=== PATIENT | male | born 1980 | race Caucasian/White ===

== ENCOUNTER 2018-10-03 14:22 | Observation (INO) | payer SELFPAY ==
[~2018-10-03] VITALS: Ht 170.2 cm; Wt 115.7 kg
[~2018-10-03 14:22] MED LIST: HYDR1TAB PO; IBP800T PO; METH4TAB PO
[2018-10-03 14:42] LABS: HEMATOCRIT 46 % (40-54); HEMOGLOBIN 16.1 G/DL (13.3-17.7); MEAN CORPUSCULAR HEMOGLOBIN 30 PG (25-34); MEAN CORPUSCULAR HGB CONC 35 G/DL (32-36); MEAN CORPUSCULAR VOLUME 87 FL (80-99)
[2018-10-03 14:43] LABS: BASOPHILS % (AUTO) 1 % (0-10); EOSINOPHILS # (AUTO) 0.2 10^3/uL (0.0-0.3); EOSINOPHILS % (AUTO) 4 % (0-10); LYMPHOCYTES % (AUTO) 33 % (12-44); MEAN PLATELET VOLUME 10.5 FL (7.4-10.4); MONOCYTES # (AUTO) 0.5 X 10^3 (0.0-1.0); MONOCYTES % (AUTO) 8 % (0-12); NEUTROPHILS # (AUTO) 3.3 X 10^3 (1.8-7.8); NEUTROPHILS % (AUTO) 55 % (42-75); PLATELET COUNT 145 10^3/uL (130-400); RED CELL DISTRIBUTION WIDTH 13.3 % (10.0-14.5)
[2018-10-03] MEDS ORDERED: NITROGLYCERIN 0.4 MG SL TABS BTL 25'S SL PRN (14:45)
[2018-10-03] MEDS ORDERED: ONDANSETRON 4 MG/2 ML (SDV) Z0FRAN IVP ONE (14:45)
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
--- NOTE | 2018-10-03 15:01 | Diagnostic Imaging Report ---
INDICATION: Chest pain. Portable chest at 02:24 p.m. FINDINGS: There are postop changes from a median sternotomy. Heart size and pulmonary vascularity are normal. Lungs are clear. There are no effusions or pneumothoraces. IMPRESSION: Negative chest. Dictated by: Dictated on workstation # [id number]
[2018-10-03 15:13] LABS: CARBON DIOXIDE 26 MMOL/L (21-32); CHLORIDE 97 MMOL/L (98-107); SODIUM 136 MMOL/L (135-145)
[2018-10-03 15:14] LABS: ALANINE AMINOTRANSFERASE 59 U/L (0-55); ALKALINE PHOSPHATASE 96 U/L (40-136); BILIRUBIN,TOTAL 0.6 MG/DL (0.1-1.0); BUN/CREATININE RATIO 13; CALCIUM 8.9 MG/DL (8.5-10.1); CREATININE SERUM 0.88 MG/DL (0.60-1.30); GFR ESTIMATED > 60; GLUCOSE 124 MG/DL (70-105); MAGNESIUM 1.7 MG/DL (1.8-2.4); TOTAL PROTEIN 7.4 GM/DL (6.4-8.2)
[2018-10-03 15:15] LABS: ALBUMIN 4.7 GM/DL (3.2-4.5); LIPASE 107 U/L (8-78)
--- OUTSIDE RECORDS SUMMARY | 2018-10-03 17:18 | XMS REPORT ---
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 Active 684679302 Problem Left hand paresthesia R20.2 Active [id number] ALLERGIES No Information ENCOUNTERS Encounter Location Date Diagnosis [address] [address] August, Tension headache G44.209 and Hyperlipidemia E78.[address] [address] August, Left hand paresthesia R20.[address] [address] August, Left hand paresthesia R20.[address] [address] August, Left hand paresthesia R20.2 ; 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 and Acanthosis nigricans L83 [address] [address] August, Left hand paresthesia R20.2 ; Morbid obesity E66.01 ; 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 and Acanthosis nigricans L83 [address] [address] Jun, Acute chest wall pain R07.89 and Morbid obesity E66.01 [facility] [address] [facility] [id number] [address] Jul, [place] [id number] [facility] [id number] [address] Jul, [facility] [address] [facility] [id number] [address] Sep, [facility] [address] [facility] [id number] [place] [address] August, [facility] [address] [facility] [id number] [address] Jul, [facility] [address] [facility] [id number] [address] Apr, [facility] [address] [facility] [id number] [address] Apr, [facility] [id number] [address] Apr, [facility] [address] [address] Feb, [facility] [address] [address] Feb, [facility] [address] [place] [id number] [address] Feb, [facility] [address] [place] [id number] [address] Feb, IMMUNIZATIONS No Known Immunizations SOCIAL HISTORY Never Assessed REASON FOR VISIT [facility] PLAN OF CARE VITAL SIGNS MEDICATIONS No Known Medications RESULTS No Results PROCEDURES No Known procedures INSTRUCTIONS MEDICATIONS ADMINISTERED No Known Medications MEDICAL (GENERAL) HISTORY Type Description Date Medical History hypertension Medical History heart by pass Medical History two stents Surgical History heart surgery Surgical History stent placement Hospitalization History surgery
--- OUTSIDE RECORDS SUMMARY | 2018-10-03 17:18 | XMS REPORT | Continuity of Care Document ---
Author Organization Unknown Address Unknown Allergies There is no data. Medications There is no data. Problems There is no data. Procedures There is no data. Results Test Result Range [facility] - 09/05/18 07:50 GLUCOSE 89 mg/dL 65-99 UREA NITROGEN (BUN) 14 mg/dL 7-25 CREATININE 0.86 mg/dL 0.60-1.35 eGFR NON-AFR. IRISH 109 mL/min/1.73m2 > OR=60 eGFR 127 mL/min/1.73m2 > OR=60 BUN/CREATININE RATIO NOT APPLICABLE (calc) 6-22 SODIUM 137 mmol/L 135-146 POTASSIUM 4.3 mmol/L 3.5-5.3 CHLORIDE 103 mmol/L 98-110 CARBON DIOXIDE 27 mmol/L 20-32 CALCIUM 9.2 mg/dL 8.6-10.3 PROTEIN, TOTAL 7.1 g/dL 6.1-8.1 ALBUMIN 4.6 g/dL 3.6-5.1 GLOBULIN 2.5 g/dL (calc) 1.9-3.7 ALBUMIN/GLOBULIN RATIO 1.8 (calc) 1.0-2.5 BILIRUBIN, TOTAL 0.7 mg/dL 0.2-1.2 ALKALINE PHOSPHATASE 84 U/L 40-115 AST 34 U/L 10-40 ALT 51 U/L 9-46 CBC - 09/05/18 07:50 WHITE BLOOD CELL COUNT 4.8 Thousand/uL 3.8-10.8 RED BLOOD CELL COUNT 5.62 Million/uL 4.20-5.80 HEMOGLOBIN 16.8 g/dL 13.2-17.1 HEMATOCRIT 48.6 % 38.5-50.0 MCV 86.5 fL 80.0-100.0 MCH 29.9 pg 27.0-33.0 MCHC 34.6 g/dL 32.0-36.0 RDW 12.9 % 11.0-15.0 PLATELET COUNT 146 Thousand/uL 140-400 MPV 11.2 fL 7.5-12.5 ABSOLUTE NEUTROPHILS 2866 cells/uL 3755-6609 ABSOLUTE LYMPHOCYTES 1392 cells/uL 850-3900 ABSOLUTE MONOCYTES 326 cells/uL 200-950 ABSOLUTE EOSINOPHILS 187 cells/uL 15-500 ABSOLUTE BASOPHILS 29 cells/uL 0-200 NEUTROPHILS 59.7 % NRG LYMPHOCYTES 29.0 % NRG MONOCYTES 6.8 % NRG EOSINOPHILS 3.9 % NRG BASOPHILS 0.6 % NRG ESR/SED RATE - 09/05/18 07:50 SED RATE BY MODIFIED WESTERGREN 2 mm/h < OR=15 A1C - 09/05/18 07:50 HEMOGLOBIN A1c 5.9 % of total Hgb <5.7 Encounters ACCT No. Visit Date/Time Discharge Status Pt. Type Provider Facility Loc./Unit Complaint [id number] 09/11/2018 10:00:00 09/11/2018 23:59:59 CLS Outpatient JOE ROTHMANK [place] [id number] 09/05/2018 08:00:00 Document Registration
--- OUTSIDE RECORDS SUMMARY | 2018-10-03 17:27 | XMS REPORT | Continuity of Care Document ---
Author Organization Unknown Address Unknown Allergies There is no data. Medications There is no data. Problems There is no data. Procedures There is no data. Results Test Result Range [facility] - 09/05/18 07:50 GLUCOSE 89 mg/dL 65-99 UREA NITROGEN (BUN) 14 mg/dL 7-25 CREATININE 0.86 mg/dL 0.60-1.35 eGFR NON-AFR. [place] 109 mL/min/1.73m2 > OR=60 eGFR 127 mL/min/1.73m2 [...] 11.2 fL 7.5-12.5 ABSOLUTE NEUTROPHILS 2866 cells/uL 0609-5443 ABSOLUTE LYMPHOCYTES 1392 cells/uL 850-3900 ABSOLUTE MONOCYTES [...] Status Pt. Type Provider Facility Loc./Unit Complaint [id number] 09/11/2018 10:00:00 09/11/2018 23:59:59 CLS Outpatient JOE ROTHMANK [place] [id number] 09/05/2018 08:00:00 Document Registration
--- NOTE | 2018-10-03 17:45 | NUR ---
JACKIShira HURTADO admitted to room 416-1, with an admitting diagnosis of CHEST PAIN, on 10/03/18 from [facility] via [facility], accompanied by [employer] AND STAFF.JACKI HURTADO introduced to surroundings, call light, bed controls, phone, TV, temperature control, lights, meal times, smoking policy, visitor policy, side rail policy, bathrooms and showers. Patient Rights given to patient in the handbook.JACKI HURTADO verbalizes understanding that [facility] is not responsible for the loss or damage to any personal effects or valuables that are kept in the patients posession during their hospitalization. The following Patient Care Plans were discussed with the PT: Discharge Planning, PAIN CONTROL, TESTS AND PROCEDURES, and IV AND TEL. MONITOR. JACKI HURTADO verbalizes understanding of Interdisciplinary Patient Education. Patient and/or family were informed about the Rapid Response Team and its purpose.
[2018-10-03] MEDS ORDERED: CATHETER FLUSH 10 ML SYR IV PRN (18:45)
[2018-10-03] MEDS ORDERED: CLOP75TA69 PO (19:31)
[2018-10-03] MEDS ORDERED: ASPI-808 PO (19:31)
[2018-10-03] MEDS ORDERED: METO-333 PO (19:32)
[2018-10-03] MEDS ORDERED: ISM60TCR PO (19:33)
[2018-10-03] MEDS ORDERED: ATOR80TA76 PO (19:36)
[2018-10-03 19:41] VITALS: BP 120/75
[2018-10-03 20:20] VITALS: BP 135/80
[2018-10-03] MEDS ORDERED: CALCIUM CARBONATE 500 MG (TUMS) TAB.CHEW PO PRN (21:00)
[2018-10-03] MEDS ORDERED: ACETAMINOPHEN 500 MG TAB (TYLENOL) PO PRN (21:00)
[2018-10-03] MEDS ORDERED: ONDANSETRON 4 MG/2 ML (SDV) Z0FRAN IVP PRN (21:00)
[2018-10-03] MEDS ORDERED: HYDROcodone/APAP 5 MG/325 MG (LORTAB) TAB PO PRN (21:00)
[2018-10-03] MEDS ORDERED: ATORVASTATIN 80 MG (LIPITOR) TABLET PO SCH (21:00)
[2018-10-03] MEDS ORDERED: MELATONIN 3 MG TABLET PO PRN (21:00)
[2018-10-03] MEDS ORDERED: DOCUSATE SODIUM 100 MG (COLACE) CAP PO PRN (21:00)
[2018-10-03] MEDS: SENNA W/DOCUSATE (SENOKOT S) TABLET PO SCH (21:00)
[2018-10-03] MEDS ORDERED: fentaNYL INJECTION 100 MCG/2 ML AMP IVP PRN (21:00)
[2018-10-03] MEDS ORDERED: SENNOSIDES 8.6 MG (SENOKOT) TAB ONE (21:02)
[2018-10-03] MEDS: meTOprolol TARTRATE 25 MG (LOPRESSOR) TABLET PO SCH (21:09)
[2018-10-03] MEDS: CATHETER FLUSH 10 ML SYR IV SCH (21:10)
--- NOTE | 2018-10-03 21:51 | Consultation-Cardiology ---
HPI-Cardiology Cardiology Consultation Date of Consultation 10/03/18 Date of Admission Time Seen by Provider: 21:47 Indication: Chest pain HPI 38 years old gentleman with history of coronary artery disease had CABG 4 done in July 2017, reported that had 2 stents placed in October 2017 and a vein graft, the report card is mentioning resolute stents to the left PDA and circumflex ar allyson, was in his usual state of health until this afternoon, he was waiting in the sun for leann for his car when he started having chest pain reported that the pain lasted for about 20 minutes in the retrosternal area, the UMANZOR nature not radiating no significant dyspnea no palpitation, by the time. I to the emergency room pain was somewhat better, had a sublingual nitroglycerin which relieved the painful he. Currently laying down in bed comfortable, denied any active pain. Home Medications & Allergies Allergies: Coded Allergies: meloxicam (Verified Allergy, Unknown, 10/03/18) tramadol HCl (Verified Allergy, Unknown, 10/03/18) Home Medication List Reviewed: Yes JSD-Gzvrhr-Yrkffm Hx Patient Social History Marital Status: Employed/Student: unemployed Alcohol Use: Denies Use Recreational Drug Use: No Smoking Status: Current Everyday Smoker Type Used: Cigarettes 2nd Hand Smoke Exposure: Yes Recent Foreign Travel: No Recent Infectious Disease Expo: No Recent Hopitalizations: No Physical Abuse Screen: No Sexual Abuse: No Past Medical History Discussed below Family Medical History Family History: Cardiovascular disease 19 FATHER Review of Systems-General Review of Systems Constitutional: no symptoms reported, see HPI EENTM: see HPI, no symptoms reported Respiratory: see HPI; No cough; dyspnea on exertion; No hemoptysis, No orthopnea, No phlegm, No short of breath, No stridor, No wheezing, No other Cardiovascular: see HPI, chest pain; No edema, No Hx of Intervention, No palpitations, No syncope, No vascular heart diseas, No other Gastrointestinal: no symptoms reported, see HPI Genitourinary: no symptoms reported, see HPI Musculoskeletal: no symptoms reported Skin: no symptoms reported, see HPI Psychiatric/Neurological: No Symptoms Reported, See HPI, Other (anxiety/emotio nal stress today) All Other Systems Reviewed Negative Unless Noted: Yes Reviewed Test Results Reviewed Test Results Lab Laboratory Tests Test 10/03/18 14:30 10/03/18 20:20 Range/Units White Blood Count 6.0 4.3-11.0 10^3/uL Red Blood Count 5.34 4.35-5.85 10^6/uL Hemoglobin 16.1 13.3-17.7 G/DL Hematocrit 46 40-54 % Mean Corpuscular Volume 87 80-99 FL Mean Corpuscular Hemoglobin 30 25-34 PG Mean Corpuscular Hemoglobin Concent 35 32-36 G/DL Red Cell Distribution Width 13.3 10.0-14.5 % Platelet Count 145 130-400 10^3/uL Mean Platelet Volume 10.5 H 7.4-10.4 FL Neutrophils (%) (Auto) 55 42-75 % Lymphocytes (%) (Auto) 33 12-44 % Monocytes (%) (Auto) 8 0-12 % Eosinophils (%) (Auto) 4 0-10 % Basophils (%) (Auto) 1 0-10 % Neutrophils # (Auto) 3.3 1.8-7.8 X 10^3 Lymphocytes # (Auto) 2.0 1.0-4.0 X 10^3 Monocytes # (Auto) 0.5 0.0-1.0 X 10^3 Eosinophils # (Auto) 0.2 0.0-0.3 10^3/uL Basophils # (Auto) 0.0 0.0-0.1 10^3/uL Sodium Level 136 135-145 MMOL/L Potassium Level 4.0 3.6-5.0 MMOL/L Chloride Level 97 L 98-107 MMOL/L Carbon Dioxide Level 26 21-32 MMOL/L Anion Gap 13 5-14 MMOL/L Blood Urea Nitrogen 11 7-18 MG/DL Creatinine 0.88 0.60-1.30 MG/DL Estimat Glomerular Filtration Rate > 60 BUN/Creatinine Ratio 13 Glucose Level 124 H 70-105 MG/DL Calcium Level 8.9 8.5-10.1 MG/DL Corrected Calcium 8.5-10.1 MG/DL Magnesium Level 1.7 L 1.8-2.4 MG/DL Total Bilirubin 0.6 0.1-1.0 MG/DL Aspartate Amino Transf (AST/SGOT) 32 5-34 U/L Alanine Aminotransferase (ALT/SGPT) 59 H 0-55 U/L Alkaline Phosphatase 96 40-136 U/L Myoglobin 139.0 H 10.0-92.0 NG/ML Troponin T 11 <=15 NG/L Total Protein 7.4 6.4-8.2 GM/DL Albumin 4.7 H 3.2-4.5 GM/DL Lipase 107 H 8-78 U/L Troponin I 0.029 H <0.028 NG/ML Physical Exam Physical Exam Vital Signs Vital Signs - First Documented 10/03/18 14:25 Temp 99.0 Pulse 84 Resp 20 B/P (MAP) 141/79 (99) Pulse Ox 96 O2 Delivery Room Air Capillary Refill : Less Than 3 Seconds Height, Weight, BMI Height: 5'7.00" Weight: 255lbs. 0.0oz. 115.357874up; 39.9 BMI Method:Stated General Appearance: No Apparent Distress, WD/WN HEENT: PERRL/EOMI, Normal ENT Inspection Neck: Full Range of Motion, Normal Inspection, Non Tender, Supple Respiratory: No Chest Non Tender (there is some chest wall tenderness present over the upper sternum); Lungs Clear, Normal Breath Sounds, No Accessory Muscle Use, No Respiratory Distress Cardiovascular: Regular Rate, Rhythm, No Edema, No Gallop, No JVD, No Murmur Gastrointestinal: Normal Bowel Sounds, No Organomegaly, No Pulsatile Mass, Non Tender, Soft Extremity: Normal Capillary Refill, Normal Inspection, Normal Range of Motion, Non Tender, No Calf Tenderness Neurologic/Psychiatric: Alert, Oriented x3, No Motor/Sensory Deficits, Normal Mood/Affect, traveling clerk II-XII Norm as Tested Skin: Normal Color, Warm/Dry Lymphatic: No Adenopathy A/P-Cardiology Admission Diagnosis Chest pain Coronary artery disease Hypertension Hyperlipidemia Assessment/Plan Chest pain nonspecific etiology, atypical in presentation, EKG did not show any acute abnormality, continue to monitor cardiac enzymes, planning to repeat EKG in a.m., evaluate echocardiogram Coronary artery disease history of CABG 4 done in July 2017, 2 stents using resolute stent to the vein graft to the circumflex and left PDA done in October 2017, does not follow up with a strand galvanizer at this time. Planning to evaluate stress test as an outpatient if his cardiac enzymes were negative neck Hypertension, maintained on metoprolol, restart medication monitor next Hyperlipidemia, continue on Lipitor, monitor lipids next Tobaccoism, educated on smoking cessation BMI 39, obesity, educated on smoking cessation and weight loss Clinical Quality Measures AMI/AHF: ASA po Prior to arrival: Yes DVT/VTE Risk/Contraindication: Risk Factor Score Per Nursin RFS Level Per Nursing on Admit: 2=Moderate ROGER THOMPSON MD Oct 03, 2018 21:51
[2018-10-04] VITALS: BP 114/64
[2018-10-04 04:00] VITALS: BP 111/70
[2018-10-04 04:59] LABS: HEMOGLOBIN 15.5 G/DL (13.3-17.7); MEAN PLATELET VOLUME 10.8 FL (7.4-10.4); RED CELL DISTRIBUTION WIDTH 13.5 % (10.0-14.5)
[2018-10-04 05:18] LABS: ALANINE AMINOTRANSFERASE 59 U/L (0-55); ALBUMIN 4.1 GM/DL (3.2-4.5); ALKALINE PHOSPHATASE 86 U/L (40-136); BILIRUBIN,TOTAL 0.6 MG/DL (0.1-1.0); BUN/CREATININE RATIO 15; CARBON DIOXIDE 24 MMOL/L (21-32); CHLORIDE 103 MMOL/L (98-107); CREATININE SERUM 0.87 MG/DL (0.60-1.30); GFR ESTIMATED > 60; GLUCOSE 95 MG/DL (70-105); SODIUM 138 MMOL/L (135-145); TOTAL PROTEIN 6.6 GM/DL (6.4-8.2)
[2018-10-04] MEDS: CATHETER FLUSH 10 ML SYR IV SCH (06:41)
[2018-10-04 08:00] VITALS: BP 134/62
[2018-10-04] MEDS: meTOprolol TARTRATE 25 MG (LOPRESSOR) TABLET PO SCH (08:41)
[2018-10-04] MEDS: SENNA W/DOCUSATE (SENOKOT S) TABLET PO SCH (08:42)
[2018-10-04] MEDS ORDERED: CLOPIDOGREL 75 MG (PLAVIX) TABLET PO SCH (09:00)
[2018-10-04] MEDS ORDERED: ASPIRIN E.C. 81 MG (ECOTRIN) TAB PO SCH (09:00)
[2018-10-04] MEDS ORDERED: ISOSORBIDE MONONITRATE 60 MG (IMDUR) TAB PO SCH (09:00)
--- NOTE | 2018-10-04 09:30 | Cardiology Progress Note ---
Subjective Date Seen by Provider: Oct 04, 2018 Time Seen by Provider: 09:29 Subjective/Events-last exam patient is laying down in bed, feeling better, no further episodes of chest pain Review of Systems General: No Chills, No Night Sweats, No Fatigue, No Malaise, No Appetite, No Other HEENT: No Head Aches, No Visual Changes, No Eye Pain, No Ear Pain, No Dysphasia, No Sinus Congestion, No Post Nasal Drip, No Sore Throat, No Other Pulmonary: No Dyspnea, No Cough, No Pleuritic Chest Pain, No Other Cardiovascular: No: Chest Pain, Palpitations, Orthopnea, Paroxysmal Noc. Dyspnea, Edema, Lt Headedness, Other Objective-Cardiology Exam Last Set of Vital Signs Vital Signs 10/04/18 10/04/18 08:00 09:00 Temp 96.7 Pulse 66 Resp 18 B/P (MAP) 134/62 (86) Pulse Ox 95 O2 Delivery Room Air Capillary Refill : Less Than 3 Seconds I&O Intake and Output 10/04/18 00:00 Intake Total 1160 ml Balance 1160 ml Intake Oral 1160 ml # Voids 2 Daily Weight Change No No General: Alert, Oriented X3, Cooperative HEENT: Atraumatic, PERRLA Neck: Supple, No JVD, No Thyromegaly Lungs: Clear to Auscultation, Normal Air Movement Heart: Regular Rate, Normal S1, Normal S2, No Murmurs Abdomen: Normal Bowel Sounds, Soft, No Tenderness, No Hepatosplenomegaly, No Masses Extremities: No Clubbing, No Cyanosis, No Edema, Normal Pulses, No Tenderness/Swelling Skin: No Rashes, No Breakdown, No Significant Lesion Neuro: Normal Gait, Normal Speech, Strength at 5/5 X4 Ext, Normal Tone, Sensation Intact Psych/Mental Status: Mental Status NL, Mood NL Results Lab Laboratory Tests 10/03/18 14:30 10/04/18 04:45 A/P-Cardiology Admission Diagnosis Final Diagnosis Chest pain Coronary artery disease Hypertension Hyperlipidemia Assessment/Plan Chest pain nonspecific etiology, atypical in presentation, reporting improvement, Cardec enzymes were negative. Planning to evaluate stress test as an outpatient. Okay for discharge Coronary artery disease history of CABG 4 done in July 2017, 2 stents using resolute stent to the vein graft to the circumflex and left PDA done in October 2017, does not follow up with a literary writer at this time. Planning to evaluate stress test as an outpatient if his cardiac enzymes were negative Hypertension, continue current medication monitor blood pressure Hyperlipidemia, continue on Lipitor, monitor lipids Tobaccoism, educated on smoking cessation BMI 39, obesity, educated on smoking cessation and weight loss Clinical Quality Measures AMI/AHF: ASA po Prior to arrival: Yes DVT/VTE Risk/Contraindication: Risk Factor Score Per Nursin RFS Level Per Nursing on Admit: 2=Moderate ROGER THOMPSON MD Oct 04, 2018 09:30
[2018-10-04] MEDS ORDERED: ASPI-983 PO (09:31)
[2018-10-04 15:44] LABS: CREATINE KINASE MB 8.3 NG/ML (<6.6)
== END 2018-10-04 09:30 | disposition home or self-care (01) ==
LOC: EDUNIT# 14:22 → ER FS 14:24 → 4TH 16:31 → UNDOADMOB 16:31 → 4TH 17:45 → UNDODISOB 10-04 11:30
PROVIDERS: ADMIT Internal Medicine; ATTEND Internal Medicine
DX: R07.89 Other chest pain (principal); I25.10 Atherosclerotic heart disease of native coronary artery without angina pectoris; I10 Essential (primary) hypertension; E78.5 Hyperlipidemia, unspecified; F17.210 Nicotine dependence, cigarettes, uncomplicated; Z95.5 Presence of coronary angioplasty implant and graft; Z95.1 Presence of aortocoronary bypass graft; E66.9 Obesity, unspecified; Z68.39 Body mass index [BMI] 39.0-39.9, adult; Z79.899 Other long term (current) drug therapy; Z79.84 Long term (current) use of oral hypoglycemic drugs; Z79.02 Long term (current) use of antithrombotics/antiplatelets
CPT/HCPCS: 36415; 71045; 80053; 82553; 83690; 83735; 83874; 84484; 85025; 85027; 93005; 93041; 93306; 96374; G0378

== ENCOUNTER 2018-12-25 12:23 | Emergency (ER) | payer SELFPAY ==
[~2018-12-25] VITALS: Ht 170.2 cm; Wt 108.9 kg
[~2018-12-25 12:23] MED LIST changes: +ASPI-808 PO; +ASPI-983 PO; +ATOR80TA76 PO; +CLOP75TA69 PO; +ISM60TCR PO; +METO-333 PO
--- NOTE | 2018-12-25 13:00 | ED Headache ---
General Stated Complaint: HEADACHE Source: patient Exam Limitations: no limitations History of Present Illness Date Seen by Provider: Dec 25, 2018 Time Seen by Provider: 12:50 Initial Comments The patient is a 38-year-old male presents for evaluation of a headache which began 3 weeks ago and he states has been constant. He says that he has a history of migraines. States that he wanted to call [facility] emergency department about a week ago and received some injections and was discharged home. He states he did not have any imaging of his brain at that time. He denies any recent head injury, fevers or chills, nausea or vomiting, light sensitivity, neck pain or stiffness, focal weakness or focal numbness, changes, chest pain or shortness of breath, dizziness or syncope. He is alert and oriented 4, calm, appears to be in no distress. Interestingly, his daughter is here with an unrelated complaint in a different room. Timing/Duration: other (3 weeks) Severity/Quality: moderate, constant Location: frontal Prior Headaches/Recent Trauma: no recent headache/trauma Modifying Factors: improves with other Associated Symptoms: denies symptoms Allergies and Home Medications Allergies Coded Allergies: meloxicam (Verified Allergy, Unknown, 10/03/18) tramadol HCl (Verified Allergy, Unknown, 10/03/18) Home Medications Aspirin 81 Mg Tablet.dr, 81 MG PO DAILY Prescribed by: ROGER THOMPSON on 10/04/18930 Atorvastatin Calcium 80 Mg Tablet, 80 MG PO HS Prescribed by: SEB SUTTON on 10/03/181935 Clopidogrel Bisulfate 75 Mg Tablet, 75 MG PO DAILY Prescribed by: SEB SUTTON on 10/03/181930 Isosorbide Mononitrate 60 Mg Tab, 60 MG PO DAILY Prescribed by: SEB SUTTON on 10/03/181932 Metoprolol Tartrate 25 Mg Tablet, 25 MG PO BID Prescribed by: SEB SUTTON on 10/03/181931 Patient Home Medication List Home Medication List Reviewed: Yes Review of Systems Review of Systems Constitutional: no symptoms reported Eyes: No Symptoms Reported Ears, Nose, Mouth, Throat: no symptoms reported Respiratory: no symptoms reported Cardiovascular: no symptoms reported Gastrointestinal: no symptoms reported Genitourinary: no symptoms reported Musculoskeletal: no symptoms reported Skin: no symptoms reported Psychiatric/Neurological: Headache All Other Systems Reviewed Negative Unless Noted: Yes Past Gswoioz-Szyjfv-Sbxfxp Hx Past Med/Social Hx: Reviewed Nursing Past Med/Soc Hx Patient Social History Type Used: Cigarettes 2nd Hand Smoke Exposure: Yes Recent Hopitalizations: No Seasonal Allergies Seasonal Allergies: No Past Medical History Surgeries: Yes CABG, Coronary Stent Respiratory: No Cardiac: Yes (CABG JULY 2017 STENT APRIL 2017) Coronary Artery Disease Neurological: No Genitourinary: No Gastrointestinal: No Musculoskeletal: No Endocrine: No HEENT: No Cancer: No Psychosocial: No Integumentary: No Blood Disorders: No Family Medical History Cardiovascular disease 19 FATHER Physical Exam Vital Signs Capillary Refill : Height, Weight, BMI Height: 5'7.00" Weight: 255lbs. 0.0oz. 115.470132td; 39.9 BMI Method:Stated General Appearance: WD/WN, no apparent distress HEENT: PERRL/EOMI, normal ENT inspection, TMs normal, pharynx normal Neck: non-tender, full range of motion, supple, normal inspection Cardiovascular: regular rate, rhythm, no edema, no gallop, no JVD Respiratory: chest non-tender, lungs clear, normal breath sounds, no respiratory distress, no accessory muscle use Gastrointestinal: normal bowel sounds, non tender, soft Back: normal inspection, no CVA tenderness, no vertebral tenderness Extremities: normal range of motion, non-tender, normal inspection, no pedal edema Psychiatric: alert, oriented x 3 Crainal Nerves: normal hearing, normal speech, PERRL Coordination/Gait: normal finger to nose, normal gait Motor/Sensory: no motor deficit, no sensory deficit Skin: normal color, warm/dry Progress/Results/Core Measures Results/Orders My Orders Orders - EMMA WATSON DO Metoclopramide Injection (Reglan Injecti (12/25/18 13:00) Diphenhydramine Injection (Benadryl Inje (12/25/18 13:00) Sumatriptan Injection (Imitrex Injection (12/25/18 13:00) Ns Iv 1000 Ml (Sodium Chloride 0.9%) (12/25/18 13:00) Ct Head Wo (12/25/18 12:53) Medications Given in ED Current Medications Medications Dose Ordered Sig/Gabi Route Start Time Stop Time Status Last Admin Dose Admin Diphenhydramine HCl 50 mg ONCE ONCE IVP 12/25/18 13:00 8/29/19 13:01 DC 12/25/18 13:56 50 MG Metoclopramide HCl 10 mg ONCE ONCE IVP 12/25/18 13:00 12/25/18 13:01 DC 12/25/18 13:56 10 MG Sumatriptan Succinate 6 mg ONCE ONCE SQ 12/25/18 13:00 12/25/18 13:01 DC 12/25/18 13:56 6 MG Progress Progress Note : Progress Note @1507 - Patient updated on CT results. He is sleeping in the room and snoring and needs to be woken up. He states he is feeling much better and is asking to be discharged home. Workup today feels reveal any emergent pathology. The patient is stable for discharge home. Advise close follow-up with his PCP in the next 1-2 days and return to the emergency department for new or worsening symptoms. Diagnostic Imaging Comments [facility]. [place], [place] NAME: JACKI HURTADO [facility] REC#: [id number] PT STATUS: REG ER : 1980 PHYSICIAN: EMMA WATSON DO ADMIT DATE: 12/25/18/ER FS Draft Date of Exam:12/25/18 CT HEAD WO PROCEDURE: CT head without contrast. TECHNIQUE: Multiple contiguous axial images were obtained through the brain without the use of intravenous contrast. Auto Exposure Controls were utilized during the CT exam to meet ALARA standards for radiation dose reduction. INDICATION: Headaches with occasional nausea and dizziness. COMPARISON: None. FINDINGS: BRAIN: No parenchymal hemorrhage, midline shift or mass effect. Nesbitt-white matter differentiation is intact. No acute infarct. No white matter lesions. Ventricles, sulci and basilar cisterns are normal. EXTRA-AXIAL SPACES: No subdural or epidural collections. ORBITS AND PARANASAL SINUSES: Visualized orbits and globes are intact. There is mild mucosal thickening and partial opacification of the ethmoid air cells. The visualized paranasal sinuses and mastoid air cells are otherwise clear. CALVARIUM AND SOFT TISSUES: The calvarium is intact. No fractures or suspicious bony lesions. The extracranial soft tissues are unremarkable. IMPRESSION: No acute intracranial pathology. Dictated on workstation # [id number] Dict: 12/25/18 1325 Trans: 12/25/18 1329 AS6 [id number] Interpreted by: TEODORO FULLER DO Electronically signed by: Departure Impression Primary Impression: Migraine Disposition: 01 HOME, SELF-CARE Condition: Stable Departure-Patient Inst. Referrals: [facility] [place] Primary Care Physician Patient Instructions: Migraine Headache (DC) Add. Discharge Instructions: Follow-up with your doctor in the next 1-2 days. Return to the ER for new or worsening symptoms. Drink plenty of water at home. EMMA WATSON DO Dec 25, 2018 13:00
--- NOTE | 2018-12-25 13:30 | Diagnostic Imaging Report ---
PROCEDURE: CT head without contrast. TECHNIQUE: Multiple contiguous axial images were obtained through the brain without the use of intravenous contrast. Auto Exposure Controls were utilized during the CT exam to meet ALARA standards for radiation dose reduction. INDICATION: Headaches with occasional nausea and dizziness. COMPARISON: None. FINDINGS: BRAIN: No parenchymal hemorrhage, midline shift or mass effect. Nesbitt-white matter differentiation is intact. No acute infarct. No white matter lesions. Ventricles, sulci and basilar cisterns are normal. EXTRA-AXIAL SPACES: No subdural or epidural collections. ORBITS AND PARANASAL SINUSES: Visualized orbits and globes are intact. There is mild mucosal thickening and partial opacification of the ethmoid air cells. The visualized paranasal sinuses and mastoid air cells are otherwise clear. CALVARIUM AND SOFT TISSUES: The calvarium is intact. No fractures or suspicious bony lesions. The extracranial soft tissues are unremarkable. IMPRESSION: No acute intracranial pathology. Dictated by: Dictated on workstation # [id number]
[2018-12-25] MEDS: NS IV 1000 ML 1,000 ML IV SCH (13:35)
[2018-12-25] MEDS: diphenhydrAMINE 50 MG/ML INJ (BENADRYL) IVP ONE (13:56)
[2018-12-25] MEDS: SUMAtriptan 6 MG/0.5 ML (IMITREX) INJ SQ ONE (13:56)
[2018-12-25] MEDS: METOCLOPRAMIDE INJ 10 MG/2 ML (REGLAN) IVP ONE (13:56)
[2018-12-25 14:45] VITALS: BP 144/78
== END 2018-12-25 14:45 | disposition home or self-care (01) ==
LOC: EDUNIT# 12:23 → ER FS 12:24
DX: G43.909 Migraine, unspecified, not intractable, without status migrainosus (principal); I25.10 Atherosclerotic heart disease of native coronary artery without angina pectoris; Z95.5 Presence of coronary angioplasty implant and graft; Z95.1 Presence of aortocoronary bypass graft; Z88.5 Allergy status to narcotic agent; Z88.8 Allergy status to other drugs, medicaments and biological substances; Z79.82 Long term (current) use of aspirin; Z79.02 Long term (current) use of antithrombotics/antiplatelets; Z77.22 Contact with and (suspected) exposure to environmental tobacco smoke (acute) (chronic); Z82.49 Family history of ischemic heart disease and other diseases of the circulatory system
CPT/HCPCS: 70450

== ENCOUNTER 2019-06-16 17:44 | Emergency (ER) | payer SELFPAY ==
[~2019-06-16] VITALS: Ht 170.2 cm; Wt 114.7 kg
[2019-06-16] MEDS ORDERED: morphine INJ 10 MG/ML 1ML (SYR OR VIAL) IVP STA (17:54)
[2019-06-16] MEDS ORDERED: ONDANSETRON 4 MG/2 ML (SDV) Z0FRAN IVP ONE (18:00)
[2019-06-16] MEDS ORDERED: ASPIRIN 81 MG CHEW (CHILDREN'S ASA) PO ONE (18:00)
[2019-06-16 18:07] LABS: BASOPHILS % (AUTO) 0 % (0-10); EOSINOPHILS % (AUTO) 6 % (0-10); HEMATOCRIT 39 % (40-54); HEMOGLOBIN 12.8 G/DL (13.3-17.7); LYMPHOCYTES % (AUTO) 28 % (12-44); MEAN CORPUSCULAR HEMOGLOBIN 30 PG (25-34); MEAN CORPUSCULAR HGB CONC 33 G/DL (32-36); MEAN CORPUSCULAR VOLUME 89 FL (80-99); MEAN PLATELET VOLUME 10.4 FL (7.4-10.4); MONOCYTES % (AUTO) 8 % (0-12); NEUTROPHILS % (AUTO) 58 % (42-75); PLATELET COUNT 102 10^3/uL (130-400); RED CELL DISTRIBUTION WIDTH 13.1 % (10.0-14.5); WHITE BLOOD COUNT 3.9 10^3/uL (4.3-11.0)
[2019-06-16 18:08] LABS: EOSINOPHILS # (AUTO) 0.2 10^3/uL (0.0-0.3); LYMPHOCYTES # (AUTO) 1.1 X 10^3 (1.0-4.0); MONOCYTES # (AUTO) 0.3 X 10^3 (0.0-1.0); NEUTROPHILS # (AUTO) 2.3 X 10^3 (1.8-7.8)
--- NOTE | 2019-06-16 18:11 | ED Chest Pain ---
General Chief Complaint: Chest Pain Stated Complaint: CHEST PAINS Nursing Triage Note: Patient reports he had a CABG 2 years ago, clean heart cath and positive report from his material hauler at [facility] in March 2019. He reports he was in the middle of a stressful home situation about an hour ago when he began having left precordial chest pain rated 10/10 at the worst. He states he took 3 SL nitro at home, states it helped his pain some, but is still rating pain at 7.5/10 on arrival to ED. Nursing Sepsis Screen: No Definite Risk Source: patient History of Present Illness Date Seen by Provider: Jun 16, 2019 Time Seen by Provider: 18:00 Initial Comments 38 yo M presenting with chest pain and pressure after stressful event at home. Since Saturday he has been having a lot of extra stress in his life due to things going on at home. Today police and family services have showed up at his house and he had more stress. He started having burning pressure in his left side of the chest. This did not feel like his typical heart pain that he had had previously. However because of his heart history he tried taking nitroglycerin. He then 3 nitroglycerin by 5 minutes each with only minimal improvement in his pain. He presented to the emergency department with the continued pain. His material hauler in [place] had done a recent heart catheter that reportedly showed his arteries were patent. Allergies and Home Medications Allergies Coded Allergies: meloxicam (Verified Allergy, Unknown, 10/03/18) tramadol HCl (Verified Allergy, Unknown, 10/03/18) Home Medications Aspirin 81 Mg Tablet.dr, 81 MG PO DAILY Prescribed by: ROGER THOMPSON on 10/04/18 0931 Atorvastatin Calcium 80 Mg Tablet, 80 MG PO HS Prescribed by: SEB SUTTON on 10/03/181935 Clopidogrel Bisulfate 75 Mg Tablet, 75 MG PO DAILY Prescribed by: SEB SUTTON on 10/03/181930 Isosorbide Mononitrate 60 Mg Tab, 60 MG PO DAILY Prescribed by: SEB SUTTON on 10/03/181932 Metoprolol Tartrate 25 Mg Tablet, 25 MG PO BID Prescribed by: SEB SUTTON on 10/03/181931 Patient Home Medication List Home Medication List Reviewed: Yes Review of Systems Review of Systems Constitutional: No chills, No fever EENTM: No Symptoms Reported Respiratory: No Symptoms Reported Cardiovascular: See HPI, Chest Pain Gastrointestinal: No Symptoms Reported Genitourinary: No Symptoms Reported Musculoskeletal: no symptoms reported Skin: no symptoms reported Psychiatric/Neurological: See HPI Past Ccfifnb-Equnzg-Nkhvvh Hx Past Med/Social Hx: Reviewed Nursing Past Med/Soc Hx Patient Social History Alcohol Use: Denies Use Recreational Drug Use: No Smoking Status: Current Everyday Smoker Type Used: Cigarettes 2nd Hand Smoke Exposure: Yes Recent Foreign Travel: No Contact w/Someone Who Travel: No Recent Infectious Disease Expo: No Recent Hopitalizations: No Physical Abuse: No Sexual Abuse: No Mistreated: No Fear: No Seasonal Allergies Seasonal Allergies: No Past Medical History Surgeries: Yes CABG, Coronary Stent Respiratory: No Cardiac: Yes (CABG JULY 2017 STENT APRIL 2017) Coronary Artery Disease Neurological: Yes Headaches /Migraines Genitourinary: No Gastrointestinal: No Musculoskeletal: No Endocrine: No HEENT: No Cancer: No Psychosocial: No Integumentary: No Blood Disorders: No Family Medical History Cardiovascular disease 19 FATHER Physical Exam Vital Signs Vital Signs - First Documented Capillary Refill : Less Than 3 Seconds Height, Weight, BMI Height: 5'7.00" Weight: 240lbs. 0.0oz. 108.581976lk; 39.00 BMI Method:Stated General Appearance: No Apparent Distress, WD/WN HEENT: PERRL/EOMI, Normal ENT Inspection, Pharynx Normal Neck: Full Range of Motion, Normal Inspection, Non Tender, Supple; No Carotid Bruit Respiratory: Chest Non Tender, Lungs Clear, Normal Breath Sounds, No Accessory Muscle Use, No Respiratory Distress Cardiovascular: Regular Rate, Rhythm, Normal Peripheral Pulses Gastrointestinal: Normal Bowel Sounds, No Pulsatile Mass, Soft Extremity: Normal Capillary Refill, Normal Inspection, Normal Range of Motion, Non Tender, No Calf Tenderness, No Pedal Edema Neurologic/Psychiatric: Alert, Oriented x3, No Motor/Sensory Deficits Skin: Normal Color, Warm/Dry Progress/Results/Core Measures Results/Orders Lab Results Laboratory Tests Test 06/16/19 17:50 06/16/19 19:50 Range/Units White Blood Count 3.9 L 4.3-11.0 10^3/uL Red Blood Count 4.30 L 4.35-5.85 10^6/uL Hemoglobin 12.8 L 13.3-17.7 G/DL Hematocrit 39 L 40-54 % Mean Corpuscular Volume 89 80-99 FL Mean Corpuscular Hemoglobin 30 25-34 PG Mean Corpuscular Hemoglobin Concent 33 32-36 G/DL Red Cell Distribution Width 13.1 10.0-14.5 % Platelet Count 102 L 130-400 10^3/uL Mean Platelet Volume 10.4 7.4-10.4 FL Neutrophils (%) (Auto) 58 42-75 % Lymphocytes (%) (Auto) 28 12-44 % Monocytes (%) (Auto) 8 0-12 % Eosinophils (%) (Auto) 6 0-10 % Basophils (%) (Auto) 0 0-10 % Neutrophils # (Auto) 2.3 1.8-7.8 X 10^3 Lymphocytes # (Auto) 1.1 1.0-4.0 X 10^3 Monocytes # (Auto) 0.3 0.0-1.0 X 10^3 Eosinophils # (Auto) 0.2 0.0-0.3 10^3/uL Basophils # (Auto) 0.0 0.0-0.1 10^3/uL Prothrombin Time 13.4 12.2-14.7 SEC INR Comment 1.0 0.8-1.4 Activated Partial Thromboplast Time 32 24-35 SEC Sodium Level 139 135-145 MMOL/L Potassium Level 4.2 3.6-5.0 MMOL/L Chloride Level 100 98-107 MMOL/L Carbon Dioxide Level 23 21-32 MMOL/L Anion Gap 16 H 5-14 MMOL/L Blood Urea Nitrogen 15 7-18 MG/DL Creatinine 0.94 0.60-1.30 MG/DL Estimat Glomerular Filtration Rate > 60 BUN/Creatinine Ratio 16 Glucose Level 104 70-105 MG/DL Calcium Level 9.4 8.5-10.1 MG/DL Corrected Calcium 8.5-10.1 MG/DL Magnesium Level 2.0 1.6-2.4 MG/DL Total Bilirubin 0.4 0.1-1.0 MG/DL Aspartate Amino Transf (AST/SGOT) 65 H 5-34 U/L Alanine Aminotransferase (ALT/SGPT) 80 H 0-55 U/L Alkaline Phosphatase 104 40-136 U/L Troponin I < 0.30 < 0.30 <0.30 NG/ML Pro-B-Type Natriuretic Peptide 37.7 <75.0 PG/ML Total Protein 7.6 6.4-8.2 GM/DL Albumin 4.7 H 3.2-4.5 GM/DL My Orders Orders - JACOBY GONZALEZ MD Troponin I Fs (06/16/19 19:45) Medications Given in ED Current Medications Medications Dose Ordered Sig/Gabi Route Start Time Stop Time Status Last Admin Dose Admin Aspirin 324 mg ONCE ONCE PO 06/16/19 18:00 06/16/19 18:01 DC 06/16/19 18:02 324 MG Ondansetron HCl 4 mg ONCE ONCE IVP 06/16/19 18:00 06/16/19 18:01 DC 06/16/19 18:01 4 MG Vital Signs/I&O 06/16/19 06/16/19 06/16/19 17:45 17:45 20:40 Temp 36.3 Pulse 76 78 Resp 20 22 B/P (MAP) 139/82 (101) 136/81 Pulse Ox 96 96 O2 Delivery Room Air Room Air Room Air Blood Pressure Mean: 101 Progress Progress Note #1: Time: 18:00 Progress Note [facility] I arrived. ECG did not show any ischemic changes. Progress Note #2: Time: 19:01 Progress Note Updated patient that labs, electrocardiogram, chest x-ray have all been stable without acute significant abnormality. His cardiac enzymes are negative. He reports he has been pain free ever since getting aspirin and morphine here at ED. Will obtain a second troponin at 1945. Provided this is still negative and he has no further pain and problems will plan on discharging patient to home. The symptoms he was having her likely related back to stress and anxiety due to his homeless and family situation. Progress Note #3: Time: 20:29 Progress Note Repeat Troponin still <0.3 so will discharge as previously discussed with pt. Counseled on follow up and return precautions. Initial ECG Impression Date: Jun 16, 2019 Initial ECG Impression Time: 17:47 Initial ECG Rate: 77 Initial ECG Rhythm: Normal Sinus Initial ECG Comparisson: No Previous ECG Available Comment Normal sinus rhythm with a heart rate of 77 bpm. WV interval 152 ms. QT interval 386 ms and a QTc interval 437 ms. There is no acute ischemic changes. There is no prior tracing immediately available for comparison. Diagnostic Imaging Diagonstic Imaging: Xray Plain Films/CT/US/NM/MRI: chest Comments NAME: JACKI HURTADO [facility] REC#: [id number] PT STATUS: REG ER : 1980 PHYSICIAN: GRAYSON EDGAR DO ADMIT DATE: 06/16/19/ER FS Draft Date of Exam:06/16/19 CHEST 1 VIEW AP/PA ONLY INDICATION: Chest pain. TECHNIQUE: Frontal chest obtained at 6:06 p.m. and compared to 10/03/2018. FINDINGS: Patient has had previous sternotomy. The heart is normal in size. Lungs are clear. There is no pneumothorax or pleural fluid. IMPRESSION: Evidence of previous sternotomy. No acute process in the chest. Dictated on workstation # [id number] Dict: 06/16/191809 Trans: 06/16/191811 AS6 [id number] Interpreted by: WAN MCDONALD MD Electronically signed by: Departure Impression Primary Impression: Non-cardiac chest pain Additional Impression: Stress reaction Disposition: 01 HOME, SELF-CARE Condition: Improved Departure-Patient Inst. Decision time for Depature: 20:30 Referrals: [facility] (PCP/Family) Primary Care Physician Patient Instructions: Chest Pain That Is Not Caused by the Heart (DC), Stress Add. Discharge Instructions: Continue on your regular medicines Follow up with clinic and with your material hauler for continued concerns All discharge instructions reviewed with patient and/or family. Voiced u nderstanding. JACOBY GONZALEZ MD Jun 16, 2019 18:11
[2019-06-16 18:26] LABS: PROTHROMBIN TIME PATIENT 13.4 SEC (12.2-14.7)
[2019-06-16 18:32] LABS: POTASSIUM 4.2 MMOL/L (3.6-5.0); SODIUM 139 MMOL/L (135-145)
[2019-06-16 18:33] LABS: ALANINE AMINOTRANSFERASE 80 U/L (0-55); ALBUMIN 4.7 GM/DL (3.2-4.5); ALKALINE PHOSPHATASE 104 U/L (40-136); BILIRUBIN,TOTAL 0.4 MG/DL (0.1-1.0); BUN/CREATININE RATIO 16; CALCIUM 9.4 MG/DL (8.5-10.1); CARBON DIOXIDE 23 MMOL/L (21-32); CHLORIDE 100 MMOL/L (98-107); CREATININE SERUM 0.94 MG/DL (0.60-1.30); GFR ESTIMATED > 60; GLUCOSE 104 MG/DL (70-105); TOTAL PROTEIN 7.6 GM/DL (6.4-8.2)
[2019-06-16 20:40] VITALS: BP 136/81
== END 2019-06-16 20:40 | disposition home or self-care (01) ==
LOC: EDUNIT# 17:44 → ER FS 17:45
DX: R07.89 Other chest pain (principal); F43.9 Reaction to severe stress, unspecified; I25.10 Atherosclerotic heart disease of native coronary artery without angina pectoris; F17.210 Nicotine dependence, cigarettes, uncomplicated; Z95.5 Presence of coronary angioplasty implant and graft; Z95.1 Presence of aortocoronary bypass graft; Z88.8 Allergy status to other drugs, medicaments and biological substances; Z88.5 Allergy status to narcotic agent; Z79.82 Long term (current) use of aspirin; Z79.02 Long term (current) use of antithrombotics/antiplatelets
CPT/HCPCS: 36415; 71045; 80053; 83735; 83880; 84484; 85025; 85610; 85730; 93005

== ENCOUNTER 2019-09-13 21:55 | Emergency (ER) | payer SELFPAY ==
[~2019-09-13] VITALS: Ht 170.2 cm; Wt 111.2 kg
--- OUTSIDE RECORDS SUMMARY | 2019-09-13 22:02 | XMS REPORT | Continuity of Care Document ---
Author Organization Unknown Address Unknown Phone Unavailable Allergies Active Description Code Type Severity Reaction Onset Reported/Identified Relationship to Patient Clinical Status Yes meloxicam [id number] Drug Allergy Unknown N/A 10/03/2018 Yes tramadol HCl [id number] Drug Allergy Unknown N/A 10/03/2018 Medications There is no data. Problems Date Dx Coded Attending Type Code Diagnosis Diagnosed By 10/04/2018 ASHLEY DENNY DO, Ot E66.9 OBESITY, UNSPECIFIED 10/04/2018 ASHLEY DENNY DO Ot E78.5 HYPERLIPIDEMIA, UNSPECIFIED 10/04/2018 ASHLEY DENNY DO Ot F17.21 0 NICOTINE DEPENDENCE, CIGARETTES, UNCOMPL 10/04/2018 ASHLEY DENNY DO Ot I10 ESSENTIAL (PRIMARY) HYPERTENSION 10/04/2018 ASHLEY DENNY DO Ot I25.10 ATHSCL HEART DISEASE OF [place] CORONARY 10/04/2018 ASHLEY DENNY DO Ot R07.89 OTHER CHEST PAIN 10/04/2018 ASHLEY DENNY DO Ot Z68.39 BODY MASS INDEX (BMI) 39.0-39.9, ADULT 10/04/2018 ASHLEY DENNY DO Ot Z79.02 [employer] (CURRENT) USE OF ANTITHROMBOTI 10/04/2018 ASHLEY DENNY DO Ot Z79.84 [employer] (CURRENT) USE OF ORAL HYPOGLYC 10/04/2018 ASHLEY DENNY DO Ot Z79.89 9 OTHER [facility] (CURRENT) DRUG THERAPY 10/04/2018 ASHLEY DENNY DO Ot Z95.1 PRESENCE OF AORTOCORONARY BYPASS GRAFT 10/04/2018 ASHLEY DENNY DO Ot Z95.5 PRESENCE OF CORONARY ANGIOPLASTY IMPLANT 12/25/2018 WALTER CARTER DO Ot G43.909 MIGRAINE, UNSP, NOT INTRACTABLE, WITHOUT 12/25/2018 WALTER CARTER DO Ot I25. 10 ATHSCL HEART DISEASE OF [place] CORONARY 12/25/2018 WALTER CARTER DO Ot R51 HEADACHE 12/25/2018 WALTER CARTER DO Ot Z77. 22 CNTCT W AND EXPSR TO ENVIRON TOBACCO SMO 12/25/2018 WALTER CARTER DO Ot Z79. 02 [facility] (CURRENT) USE OF ANTITHROMBOTI 12/25/2018 WALTER CARTER DO Ot Z79. 82 [facility] (CURRENT) USE OF ASPIRIN 12/25/2018 WALTER CARTER DO Ot Z82. 49 FAMILY HX OF ISCHE[place] HEART DIS AND OTH DI 12/25/2018 WALTER CARTER DO Ot Z88. 5 ALLERGY STATUS TO NARCOTIC AGENT STATUS 12/25/2018 WALTER CARTER DO Ot Z88. 8 ALLERGY STATUS TO OTH DRUG/MEDS/BIOL SUB 12/25/2018 WALTER CARTER DO Ot Z95. 1 PRESENCE OF AORTOCORONARY BYPASS GRAFT 12/25/2018 WALTER CARTER DO Ot Z95. 5 PRESENCE OF CORONARY ANGIOPLASTY IMPLANT 12/27/2018 WALTER CARTER DO Ot G43.909 MIGRAINE, UNSP, NOT INTRACTABLE, WITHOUT 12/27/2018 WALTER CARTER DO Ot I25. 10 ATHSCL HEART DISEASE OF [place] CORONARY 12/27/2018 WALTER CARTER DO Ot R51 HEADACHE 12/27/2018 WALTER CARTER DO Ot Z77. 22 CNTCT W AND EXPSR TO ENVIRON TOBACCO SMO 12/27/2018 WALTER CARTER DO Ot Z79. 02 [employer] (CURRENT) USE OF ANTITHROMBOTI 12/27/2018 WALTER CARTER DO Ot Z79. 82 [facility] (CURRENT) USE OF ASPIRIN 12/27/2018 WALTER CARTER DO Ot Z82. 49 FAMILY HX OF ISCHEM HEART DIS AND OTH DI 12/27/2018 WALTER CARTER DO Ot Z88. 5 ALLERGY STATUS TO NARCOTIC AGENT STATUS 12/27/2018 WALTER CARTER DO Ot Z88. 8 ALLERGY STATUS TO OTH DRUG/MEDS/BIOL SUB 12/27/2018 WALTER CARTER DO Ot Z95. 1 PRESENCE OF AORTOCORONARY BYPASS GRAFT 12/27/2018 WALTER CARTER DO Ot Z95. 5 PRESENCE OF CORONARY ANGIOPLASTY IMPLANT Procedures There is no data. Results Test Result Range CMP - 09/05/18 07:50 GLUCOSE 89 mg/dL 65-99 UREA NITROGEN (BUN) 14 mg/dL 7-25 CREATININE 0.86 mg/dL 0.60-1.35 eGFR NON-AFR. LUXEMBOURGER 109 mL/min/1.73m2 > OR = 60 eGFR 127 mL/min/1.73m2 > OR = 60 BUN/CREATININE RATIO NOT APPLICABLE (calc) 6-22 SODIUM 137 mmol/L 135-146 POTASSIUM 4.3 mmol/L 3.5-5.3 CHLORIDE 103 mmol/L 98-110 CARBON DIOXIDE 27 mmol/L 20-32 CALCIUM 9.2 mg/dL 8.6-10.3 PROTEIN, TOTAL 7.1 g/dL 6.1-8.1 ALBUMIN 4.6 g/dL 3.6-5.1 GLOBULIN 2.5 g/dL (calc) 1.9-3.7 ALBUMIN/GLOBULIN RATIO 1.8 (calc) 1.0-2. 5 BILIRUBIN, TOTAL 0.7 mg/dL 0.2-1.2 ALKALINE PHOSPHATASE 84 U/L 40-115 AST 34 U/L 10-40 ALT 51 U/L 9-46 CBC - 09/05/18 07:50 WHITE BLOOD CELL COUNT 4.8 Thousand/uL 3 .8-10.8 RED BLOOD CELL COUNT 5.62 Million/uL 4.2 0-5.80 HEMOGLOBIN 16.8 g/dL 13.2-17.1 HEMATOCRIT 48.6 % 38.5-50.0 MCV 86.5 fL 80.0-100.0 MCH 29.9 pg 27.0-33.0 MCHC 34.6 g/dL 32.0-36.0 RDW 12.9 % 11.0-15.0 PLATELET COUNT 146 Thousand/uL 140-400 MPV 11.2 fL 7.5-12.5 ABSOLUTE NEUTROPHILS 2866 cells/uL 1500- 7800 ABSOLUTE LYMPHOCYTES 1392 cells/uL 850-3 900 ABSOLUTE MONOCYTES 326 cells/uL 200-950 ABSOLUTE EOSINOPHILS 187 cells/uL 15-500 ABSOLUTE BASOPHILS 29 cells/uL 0-200 NEUTROPHILS 59.7 % NRG LYMPHOCYTES 29.0 % NRG MONOCYTES 6.8 % NRG EOSINOPHILS 3.9 % NRG BASOPHILS 0.6 % NRG ESR/SED RATE - 09/05/18 07:50 SED RATE BY MODIFIED WESTERGREN 2 mm/h < OR = 15 A1C - 09/05/18 07:50 HEMOGLOBIN A1c 5.9 % of total Hgb <5.7 Complete blood count (CBC) with automate d white blood cell (WBC) differential - 10/03/18 14:30 Blood leukocytes automated count (number/volume) 6.0 10*3/uL 4.3-11.0 Blood erythrocytes automated count (number/volume) 5.34 10*6/uL 4.35-5.85 Venous blood hemoglobin measurement (mass/volume) 16.1 g/dL 13.3-17.7 Blood hematocrit (volume fraction) 46 % 40-54 Automated erythrocyte mean corpuscular volume 87 [ foz_us] 80-99 Automated erythrocyte mean corpuscular h emoglobin (mass per erythrocyte) 30 pg 25-34 Automated erythrocyte mean corpuscular h emoglobin concentration measurement (mass/volume) 35 g/dL 32-36 Automated erythrocyte distribution width ratio 13. 3 % 10.0- 14.5 Automated blood platelet count (count/volume) 145 10*3/uL 130-400 Automated blood platelet mean volume measurement 10.5 [foz_us] 7.4-10.4 Automated blood neutrophils/100 leukocytes 55 % 42-75 Automated blood lymphocytes/100 leukocytes 33 % 12-44 Blood monocytes/100 leukocytes 8 % 0-12 Automated blood eosinophils/100 leukocytes 4 % 0-10 Automated blood basophils/100 leukocytes 1 % 0-10 Blood neutrophils automated count (number/volume) 3.3 10*3 1.8-7.8 Blood lymphocytes automated count (number/volume) 2.0 10*3 1.0-4.0 Blood monocytes automated count (number/volume) 0. 5 10*3 0.0-1.0 Automated eosinophil count 0.2 10*3/uL 0 .0-0.3 Automated blood basophil count (count/volume) 0.0 10*3/uL 0.0-0.1 Comprehensive metabolic panel - 10/03/18 14:30 Serum or plasma sodium measurement (moles/volume) 136 mmol/L 135-145 Serum or plasma potassium measurement (moles/volume) 4.0 mmol/L 3.6-5.0 Serum or plasma chloride measurement (moles/volume) 97 mmol/L 98-107 Carbon dioxide 26 mmol/L 21-32 Serum or plasma anion gap determination (moles/volume) 13 mmol/L 5-14 Serum or plasma urea nitrogen measurement (mass/volume ) 11 mg/dL 7-18 Serum or plasma creatinine measurement (mass/volume) 0.88 mg/dL 0.60-1.30 Serum or plasma urea nitrogen/creatinine mass ratio 13 NRG Serum or plasma creatinine measurement w ith calculation of estimated glomerular filtration rate > NRG Serum or plasma glucose measurement (mass/volume) 124 mg/dL 70-105 Serum or plasma calcium measurement (mass/volume) 8.9 mg/dL 8.5-10.1 Serum or plasma total bilirubin measurement (mass/volu me) 0.6 mg/dL 0.1-1.0 Serum or plasma alkaline phosphatase allan surement (enzymatic activity/volume) 96 U/L 40-136 Serum or plasma aspartate aminotransfera se measurement (enzymatic activity/volume) 32 U/L 5-34 Serum or plasma alanine aminotransferase measurement (enzymatic activity/volume) 59 U/L 0-55 Serum or plasma protein measurement (mass/volume) 7.4 g/dL 6.4-8.2 Serum or plasma albumin measurement (mass/volume) 4.7 g/dL 3.2-4.5 Magnesium - 10/03/18 14:30 Magnesium 1.7 mg/dL 1.8-2.4 Serum or plasma creatine kinase MB measu rement (enzymatic activity/volume) - 10/03/18 14:30 Serum or plasma creatine kinase MB measu rement (enzymatic activity/volume) 8.3 ng/mL <6.6 Myoglobin, serum - 10/03/18 14:30 Myoglobin, serum 139.0 ng/mL 10.0-92.0 TROPONIN T - 10/03/18 14:30 TROPONIN T 11 % <=15 Lipase - 10/03/18 14:30 Lipase 107 U/L 8-78 Serum or plasma troponin i.cardiac measu rement (mass/volume) - 10/03/18 20:20 Serum or plasma troponin i.cardiac measurement (mass/v olume) 0.029 ng/mL <0.028 Automated blood complete blood count (he mogram) panel - 10/04/18 04:45 Blood leukocytes automated count (number/volume) 7.0 10*3/uL 4.3-11.0 Blood erythrocytes automated count (number/volume) 5.15 10*6/uL 4.35-5.85 Venous blood hemoglobin measurement (mass/volume) 15.5 g/dL 13.3-17.7 Blood hematocrit (volume fraction) 44 % 40-54 Automated erythrocyte mean corpuscular volume 86 [ foz_us] 80-99 Automated erythrocyte mean corpuscular h emoglobin (mass per erythrocyte) 30 pg 25-34 Automated erythrocyte mean corpuscular h emoglobin concentration measurement (mass/volume) 35 g/dL 32-36 Automated erythrocyte distribution width ratio 13. 5 % 10.0- 14.5 Automated blood platelet count (count/volume) 144 10*3/uL 130-400 Automated blood platelet mean volume measurement 10.8 [foz_us] 7.4-10.4 Comprehensive metabolic panel - 10/04/18 04:45 Serum or plasma sodium measurement (moles/volume) 138 mmol/L 135-145 Serum or plasma potassium measurement (moles/volume) 4.0 mmol/L 3.6-5.0 Serum or plasma chloride measurement (moles/volume) 103 mmol/L 98-107 Carbon dioxide 24 mmol/L 21-32 Serum or plasma anion gap determination (moles/volume) 11 mmol/L 5-14 Serum or plasma urea nitrogen measurement (mass/volume ) 13 mg/dL 7-18 Serum or plasma creatinine measurement (mass/volume) 0.87 mg/dL 0.60-1.30 Serum or plasma urea nitrogen/creatinine mass ratio 15 NRG Serum or plasma creatinine measurement w ith calculation of estimated glomerular filtration rate > NRG Serum or plasma glucose measurement (mass/volume) 95 mg/dL 70-105 Serum or plasma calcium measurement (mass/volume) 9.0 mg/dL 8.5-10.1 Serum or plasma total bilirubin measurement (mass/volu me) 0.6 mg/dL 0.1-1.0 Serum or plasma alkaline phosphatase allan surement (enzymatic activity/volume) 86 U/L 40-136 Serum or plasma aspartate aminotransfera se measurement (enzymatic activity/volume) 26 U/L 5-34 Serum or plasma alanine aminotransferase measurement (enzymatic activity/volume) 59 U/L 0-55 Serum or plasma protein measurement (mass/volume) 6.6 g/dL 6.4-8.2 Serum or plasma albumin measurement (mass/volume) 4.1 g/dL 3.2-4.5 CALCIUM CORRECTED 8.9 mg/dL 8.5-10.1 Serum or plasma troponin i.cardiac measu rement (mass/volume) - 10/04/18 04:45 Serum or plasma troponin i.cardiac measurement (mass/v olume) < ng/mL <0.028 LIPID PANEL - 12/11/18 13:44 CHOLESTEROL, TOTAL 165 mg/dL <200 HDL CHOLESTEROL 21 mg/dL >40 TRIGLYCERIDES 179 mg/dL <150 LDL-CHOLESTEROL 114 mg/dL (calc) NRG CHOL/HDLC RATIO 7.9 (calc) <5.0 NON HDL CHOLESTEROL 144 mg/dL (calc) <13 0 CBC - 12/11/18 13:44 WHITE BLOOD CELL COUNT 2.9 Thousand/uL 3 .8-10.8 RED BLOOD CELL COUNT 5.40 Million/uL 4.2 0-5.80 HEMOGLOBIN 16.5 g/dL 13.2-17.1 HEMATOCRIT 46.8 % 38.5-50.0 MCV 86.7 fL 80.0-100.0 MCH 30.6 pg 27.0-33.0 MCHC 35.3 g/dL 32.0-36.0 RDW 13.6 % 11.0-15.0 PLATELET COUNT 117 Thousand/uL 140-400 MPV 11.2 fL 7.5-12.5 ABSOLUTE NEUTROPHILS 1668 cells/uL 1500- 7800 ABSOLUTE LYMPHOCYTES 844 cells/uL 850-39 00 ABSOLUTE MONOCYTES 296 cells/uL 200-950 ABSOLUTE EOSINOPHILS 81 cells/uL 15-500 ABSOLUTE BASOPHILS 12 cells/uL 0-200 NEUTROPHILS 57.5 % NRG LYMPHOCYTES 29.1 % NRG MONOCYTES 10.2 % NRG EOSINOPHILS 2.8 % NRG BASOPHILS 0.4 % NRG COMMENT(S) NRG A1C - 02/11/19 10:18 HEMOGLOBIN A1c 5.6 % of total Hgb <5.7 PT panel in platelet poor plasma by coag ulation assay - 06/16/19 17:50 Prothrombin time (PT) in platelet poor plasma by coagu lation assay 13.4 s 12.2-14.7 INR in platelet poor plasma or blood by coagulation as say 1.0 0.8-1.4 Activated partial thromboplastin time (a PTT) in platelet poor plasma bycoagulation assay - 06/16/19 17:50 Activated partial thromboplastin time (a PTT) in platelet poor plasma bycoagulation assay 32 s 24-35 Complete blood count (CBC) with automate d white blood cell (WBC) differential - 06/16/19 17:50 Blood leukocytes automated count (number/volume) 3.9 10*3/uL 4.3-11.0 Blood erythrocytes automated count (number/volume) 4.30 10*6/uL 4.35-5.85 Venous blood hemoglobin measurement (mass/volume) 12.8 g/dL 13.3-17.7 Blood hematocrit (volume fraction) 39 % 40-54 Automated erythrocyte mean corpuscular volume 89 [ foz_us] 80-99 Automated erythrocyte mean corpuscular h emoglobin (mass per erythrocyte) 30 pg 25-34 Automated erythrocyte mean corpuscular h emoglobin concentration measurement (mass/volume) 33 g/dL 32-36 Automated erythrocyte distribution width ratio 13. 1 % 10.0- 14.5 Automated blood platelet count (count/volume) 102 10*3/uL 130-400 Automated blood platelet mean volume measurement 10.4 [foz_us] 7.4-10.4 Automated blood neutrophils/100 leukocytes 58 % 42-75 Automated blood lymphocytes/100 leukocytes 28 % 12-44 Blood monocytes/100 leukocytes 8 % 0-12 Automated blood eosinophils/100 leukocytes 6 % 0-10 Automated blood basophils/100 leukocytes 0 % 0-10 Blood neutrophils automated count (number/volume) 2.3 10*3 1.8-7.8 Blood lymphocytes automated count (number/volume) 1.1 10*3 1.0-4.0 Blood monocytes automated count (number/volume) 0. 3 10*3 0.0-1.0 Automated eosinophil count 0.2 10*3/uL 0 .0-0.3 Automated blood basophil count (count/volume) 0.0 10*3/uL 0.0-0.1 Comprehensive metabolic panel - 06/16/19 17:50 Serum or plasma sodium measurement (moles/volume) 139 mmol/L 135-145 Serum or plasma potassium measurement (moles/volume) 4.2 mmol/L 3.6-5.0 Serum or plasma chloride measurement (moles/volume) 100 mmol/L 98-107 Carbon dioxide 23 mmol/L 21-32 Serum or plasma anion gap determination (moles/volume) 16 mmol/L 5-14 Serum or plasma urea nitrogen measurement (mass/volume ) 15 mg/dL 7-18 Serum or plasma creatinine measurement (mass/volume) 0.94 mg/dL 0.60-1.30 Serum or plasma urea nitrogen/creatinine mass ratio 16 NRG Serum or plasma creatinine measurement w ith calculation of estimated glomerular filtration rate > NRG Serum or plasma glucose measurement (mass/volume) 104 mg/dL 70-105 Serum or plasma calcium measurement (mass/volume) 9.4 mg/dL 8.5-10.1 Serum or plasma total bilirubin measurement (mass/volu me) 0.4 mg/dL 0.1-1.0 Serum or plasma alkaline phosphatase allan surement (enzymatic activity/volume) 104 U/L 40-136 Serum or plasma aspartate aminotransfera se measurement (enzymatic activity/volume) 65 U/L 5-34 Serum or plasma alanine aminotransferase measurement (enzymatic activity/volume) 80 U/L 0-55 Serum or plasma protein measurement (mass/volume) 7.6 g/dL 6.4-8.2 Serum or plasma albumin measurement (mass/volume) 4.7 g/dL 3.2-4.5 Magnesium - 06/16/19 17:50 Magnesium 2.0 mg/dL 1.6-2.4 TROPONIN I FS - 06/16/19 17:50 TROPONIN I FS < 0.30 <0.30 PROBNP FS - 06/16/19 17:50 PROBNP FS 37.7 pg/mL <75.0 TROPONIN I FS - 06/16/19 19:50 TROPONIN I FS < 0.30 <0.30 Encounters ACCT No. Visit Date/Time Discharge Status Pt. Type Provider Facility Loc./Unit Complaint [id number] 04/27/2019 11:20:00 04/27/2019 23:59:5 9 [facility] Outpatient JOE ROTHMAN [facility] [id number] 02/11/2019 09:20:00 Document Registration [id number] 12/11/2018 13:00:00 Document Registration [id number] 09/05/2018 08:00:00 Document Registration [id number] 06/16/2019 17:45:00 020 20:40:00 DIS Emergency LISA HOPE, JACOBY [facility] ER FS CHEST PAINS [id number] 12/25/2018 12:24:00 08/29/2 019 14:45:00 DIS Emergency WALTER CARTER DO [facility] ER FS HEADACHE [id number] 10/03/2018 17:45:00 019 09:30:00 DIS Inpatient ASHLEY DENNY DO [facility] 4TH CHEST PAIN
[2019-09-13 22:06] VITALS: BP 153/70
[2019-09-13] MEDS ORDERED: SULF1TAB35 PO (22:15)
--- NOTE | 2019-09-13 22:16 | ED General ---
General Chief Complaint: Chest Pain Stated Complaint: RIGHT HAND PAIN Source of Information: Patient, Old Records, RN/MD, RN Notes Reviewed Exam Limitations: No Limitations History of Present Illness Date Seen by Provider: September 13, 2019 Time Seen by Provider: 22:00 Initial Comments This patient presents to the emergency department with complaint of mild tenderness to the posterior right hand on some redness and mild swelling. Patient states his been noticed this since last night. On exam appears the patient is insect bite I did discuss with patient about possibility possible spider bite. Patient states understanding. Patient denies any recent injury. Allergies and Home Medications Allergies Coded Allergies: meloxicam (Verified Allergy, Unknown, 10/03/18) tramadol HCl (Verified Allergy, Unknown, 10/03/18) Home Medications Aspirin 81 Mg Tablet.dr, 81 MG PO DAILY Prescribed by: ROGER THOMPSON on 10/04/18930 Atorvastatin Calcium 80 Mg Tablet, 80 MG PO HS Prescribed by: SEB SUTTON on 10/03/181935 Clopidogrel Bisulfate 75 Mg Tablet, 75 MG PO DAILY Prescribed by: SEB SUTTON on 10/03/181930 Isosorbide Mononitrate 60 Mg Tab, 60 MG PO DAILY Prescribed by: SEB SUTTON on 10/03/181932 Metoprolol Tartrate 25 Mg Tablet, 25 MG PO BID Prescribed by: SEB SUTTON on 10/03/181931 Patient Home Medication List Home Medication List Reviewed: Yes Review of Systems Review of Systems Constitutional: No no symptoms reported; see HPI; No chills, No diaphoresis, No dizziness, No fever, No malaise, No weakness, No weight gain, No weight loss, No other EENTM: No see HPI, No no symptoms reported, No ear discharge, No hearing loss, No ear pain, No blurred vision, No double vision, No eye pain, No tearing, No vision loss, No dental problems, No hoarseness, No mouth pain, No mouth swelling, No epistaxis, No nose congestion, No nose pain, No throat pain, No throat swelling, No other Respiratory: No no symptoms reported, No see HPI, No cough, No dyspnea on exertion, No hemoptysis, No orthopnea, No phlegm, No short of breath, No stridor, No wheezing, No other Cardiovascular: No no symptoms reported, No see HPI, No chest pain, No edema, No Hx of Intervention, No palpitations, No syncope, No vascular heart diseas, No other Gastrointestinal: No RUQ, No LUQ, No RLQ, No LLQ, No no symptoms reported, No see HPI, No abdominal pain, No constipation, No diarrhea, No dysphagia, No hematemesis, No heartburn, No jaundice, No loss of appetite, No melena, No nausea, No vomiting, No other Genitourinary: No no symptoms reported, No see HPI, No decreased output, No discharge, No dysuria, No frequency, No hematuria, No hesitancy, No incontinence, No nocturia, No pain, No other Musculoskeletal: No no symptoms reported, No see HPI, No back pain, No gout, No joint pain, No joint swelling, No muscle pain, No muscle stiffness, No muscle cramps, No muscle twitching, No muscle weakness, No neck pain, No other Skin: see HPI, lesions All Other Systems Reviewed Negative Unless Noted: Yes Past Dcshjtd-Yzwedm-Yohbcw Hx Patient Social History Alcohol Use: Occasionally Uses Recreational Drug Use: No Smoking Status: Current Everyday Smoker Type Used: Cigarettes 2nd Hand Smoke Exposure: No Recent Foreign Travel: No Contact w/Someone Who Travel: No Recent Hopitalizations: No Physical Abuse: No Sexual Abuse: No Mistreated: No Fear: No Seasonal Allergies Seasonal Allergies: No Past Medical History Surgeries: Yes CABG, Coronary Stent Respiratory: No Cardiac: Yes (CABG JULY 2017 STENT APRIL 2017) Coronary Artery Disease Neurological: Yes Headaches /Migraines Genitourinary: No Gastrointestinal: No Musculoskeletal: No Endocrine: No HEENT: No Cancer: No Psychosocial: No Integumentary: No Blood Disorders: No Family Medical History Cardiovascular disease 19 FATHER Physical Exam Vital Signs Capillary Refill : Height, Weight, BMI Height: 5'7.00" Weight: 240lbs. 0.0oz. [id number]; 39.00 BMI Method:Stated General Appearance: No Apparent Distress, WD/WN Neck: Full Range of Motion, Normal Inspection, Non Tender, Supple, Carotid Bruit Respiratory: Chest Non Tender, Lungs Clear, Normal Breath Sounds, No Accessory Muscle Use, No Respiratory Distress Cardiovascular: Regular Rate, Rhythm, No Edema, No Gallop, No JVD, No Murmur, Normal Peripheral Pulses Gastrointestinal: Normal Bowel Sounds, No Organomegaly, No Pulsatile Mass, Non Tender, Soft Skin: Normal Color, Warm/Dry, Other (area posterior right hand appears to be an insect bite with mild erythema.) Progress/Results/Core Measures Suspected Sepsis SIRS Temperature: Pulse: Respiratory Rate: Blood Pressure / Mean: Results/Orders Vital Signs/I&O Capillary Refill : Progress Note : Time: 22:13 Progress Note Discuss with patient about the possibility of spider bite or other insect bite. Fourth patient prescription for Bactrim DS. Patient encouraged to use ice as needed and Tylenol Motrin as needed for for fever or pain. Patient states understanding he will follow up with PCP in 2-3 days Departure Impression Primary Impression: Insect bite Disposition: HOME, SELF-CARE Condition: Stable Departure-Patient Inst. Decision time for Depature: 22:14 Referrals: [facility] (PCP/Family) Primary Care Physician Patient Instructions: Insect Bites and Stings (DC) Add. Discharge Instructions: Ice as needed. Finish all medications as instructed. Tylenol Motrin as needed for fever pain. All discharge instructions reviewed with patient and/or family. Voiced understanding. Scripts Sulfamethoxazole/Trimethoprim (Bactrim Ds Tablet) 1 Each Tablet 1 EACH PO BID for 10 Days, #20 TAB 0 Refills Prov: UMESH MADRID MD 09/13/19 UMESH MADRID MD September 13, 2019 22:15
== END 2019-09-13 22:19 | disposition home or self-care (01) ==
LOC: EDUNIT# 21:55 → ER FS 21:58
DX: S60.561A Insect bite (nonvenomous) of right hand, initial encounter (principal); I25.10 Atherosclerotic heart disease of native coronary artery without angina pectoris; F17.210 Nicotine dependence, cigarettes, uncomplicated; Z95.5 Presence of coronary angioplasty implant and graft; Z95.1 Presence of aortocoronary bypass graft; Z88.8 Allergy status to other drugs, medicaments and biological substances; Z79.82 Long term (current) use of aspirin; Z79.02 Long term (current) use of antithrombotics/antiplatelets; Z88.5 Allergy status to narcotic agent; W57.XXXA Bitten or stung by nonvenomous insect and other nonvenomous arthropods, initial encounter
CPT/HCPCS: 99282

== ENCOUNTER 2019-09-23 22:06 | Emergency (ER) | payer SELFPAY ==
[~2019-09-23] VITALS: Ht 178 cm; Wt 111.1 kg
[~2019-09-23 22:06] MED LIST changes: +SULF1TAB35 PO
[2019-09-23 22:16] LABS: BASOPHILS % (AUTO) 0 % (0-10); EOSINOPHILS # (AUTO) 0.3 10^3/uL (0.0-0.3); EOSINOPHILS % (AUTO) 4 % (0-10); HEMATOCRIT 47 % (40-54); HEMOGLOBIN 16.5 G/DL (13.3-17.7); LYMPHOCYTES # (AUTO) 2.7 X 10^3 (1.0-4.0); LYMPHOCYTES % (AUTO) 37 % (12-44); MEAN CORPUSCULAR HEMOGLOBIN 31 PG (25-34); MEAN CORPUSCULAR HGB CONC 35 G/DL (32-36); MEAN CORPUSCULAR VOLUME 87 FL (80-99); MEAN PLATELET VOLUME 10.8 FL (7.4-10.4); MONOCYTES # (AUTO) 0.5 X 10^3 (0.0-1.0); MONOCYTES % (AUTO) 7 % (0-12); NEUTROPHILS # (AUTO) 3.7 X 10^3 (1.8-7.8); NEUTROPHILS % (AUTO) 51 % (42-75); PLATELET COUNT 147 10^3/uL (130-400); RED CELL DISTRIBUTION WIDTH 13.8 % (10.0-14.5); WHITE BLOOD COUNT 7.4 10^3/uL (4.3-11.0)
--- NOTE | 2019-09-23 22:17 | ED Neurological Problem ---
General Chief Complaint: General Problems/Pain Source: patient, EMS ([facility]) History of Present Illness Date Seen by Provider: September 23, 2019 Time Seen by Provider: 22:04 Initial Comments PT ARRIVES VIA [facility] FROM HOME IN [place] [facility] WAS CALLED FOR STROKE SYMPTOMS--"COULDN'T TALK AND COULDN'T MOVE AND COULDN'T SEE" REPORTED TO EMS THAT LAST KNOWN WELL TIME WAS "2043" TONIGHT ALL SYMPTOMS HAVE RESOLVED NOW AND PT IS TALKING NON-STOP AND STATES HE FEELS FINE--STATES ALL HE KNOWS IS HE "WOKE UP IN THE AMBULANCE" EMS REPORT THAT ON THEIR ARRIVAL AT THE SCENE, PT "COULDN'T TALK AND SAID THAT HE COULDN'T SEE AND HE HAD RIGHT LEG NUMBNESS" PT STATES HE WAS CLEANING THE HOUSE WHEN SYMPTOMS BEGAN--HAS DENIED USING AND CLEANING CHEMICALS, ENCLOSED SPACE, ETC. 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 PT STATES HIS TOLD HIM HE HAD TWO NITROGLYCERINE, BUT HE DOES NOT RECALL THIS, AND DOES NOT RECALL EVER HAVING CHEST PAIN TONIGHT) NO REPORTED SYNCOPE AND DENIES PAIN ANYWHERE NO CHEST PAIN NO SHORTNESS OF BREATH NO PALPITATIONS NO DIZZINESS NO HEADACHE NO PARESTHESIAS OR MOTOR DEFICITS, PER PT NO VISION CHANGES, PER PT NO REPORTED SEIZURE ACTIVITY OR SYNCOPE OR FALL OR INJURY NO POST-ICTAL TYPE SYMPTOMS OR INCONTINENCE NO HISTORY OF SIMILAR PT HAS HAD 4 VESSEL CABG 08/12/17, STENTS X 2 10/2017 HAS HTN AND HYPERLIPIDEMIA PT CAN RECALL ALL OF HIS MEDICATIONS AND DOSES, INCLUDING PLAVIX AND ASPIRIN. DENIES ANY RECENT MISSED DOSES OF MEDICATIONS NO FEVER OR RECENT ILLNESS NO KNOWN SICK CONTACTS OR EXPOSURE TO CORONAVIRUS PCP: [facility] Allergies and Home Medications Allergies Coded Allergies: meloxicam (Verified Allergy, Unknown, 10/03/18) tramadol HCl (Verified Allergy, Unknown, 10/03/18) Home Medications Aspirin 81 Mg Tablet., 81 MG PO DAILY Prescribed by: ROGER THOMPSON on 10/04/18 0931 Atorvastatin Calcium 80 Mg Tablet, 80 MG PO HS Prescribed by: SEB SUTTON on 10/03/181935 Clopidogrel Bisulfate 75 Mg Tablet, 75 MG PO DAILY Prescribed by: SEB SUTTON on 10/03/181930 Isosorbide Mononitrate 60 Mg Tab, 60 MG PO DAILY Prescribed by: SEB SUTTON on 10/03/181932 Metoprolol Tartrate 25 Mg Tablet, 25 MG PO BID Prescribed by: SEB SUTTON on 10/03/181931 Sulfamethoxazole/Trimethoprim 1 Each Tablet, 1 EACH PO BID Prescribed by: UMESH MADRID on 09/13/192214 Patient Home Medication List Home Medication List Reviewed: Yes Review of Systems Review of Systems Constitutional: no symptoms reported; No chills, No diaphoresis, No dizziness, No fever, No malaise, No weakness Eyes: See HPI Ears, Nose, Mouth, Throat: no symptoms reported Respiratory: no symptoms reported; No cough, No short of breath, No wheezing Cardiovascular: no symptoms reported; No chest pain, No edema, No palpitations, No syncope Gastrointestinal: no symptoms reported; No abdominal pain, No nausea, No vomiting Genitourinary: no symptoms reported Musculoskeletal: no symptoms reported; No back pain, No neck pain Skin: no symptoms reported Psychiatric/Neurological: See HPI Endocrine: No Symptoms Reported Hematologic/Lymphatic: No Symptoms Reported Past Hxtbaht-Dvrxhq-Lvzhus Hx Past Med/Social Hx: Reviewed and Corrections made Patient Social History Alcohol Use: Denies Use Recreational Drug Use: No Smoking Status: Current Everyday Smoker Type Used: Cigarettes 2nd Hand Smoke Exposure: No Recent Hopitalizations: No Seasonal Allergies Seasonal Allergies: No Past Medical History Surgeries: Yes (4 VESSEL 08/12/17; STENTS X 2 10/2017) CABG, Coronary Stent Respiratory: No Cardiac: Yes (CABG JULY 2017; STENTS X 2 10/2017) Coronary Artery Disease, High Cholesterol, Hypertension Neurological: Yes Headaches /Migraines Genitourinary: No Gastrointestinal: No Musculoskeletal: No Endocrine: No HEENT: No Cancer: No Psychosocial: No Integumentary: No Blood Disorders: No Family Medical History Cardiovascular disease 19 FATHER Physical Exam Vital Signs Vital Signs - First Documented 09/23/19 22:08 Temp 36.3 Pulse 85 Resp 20 B/P (MAP) 150/89 (109) Pulse Ox 95 O2 Delivery Room Air Capillary Refill : Height, Weight, BMI Height: 5'7.00" Weight: 240lbs. 0.0oz. 108.868016sb; 38.00 BMI Method:Stated General Appearance: WD/WN, no apparent distress, other (PT SITTING UPRIGHT, TALKING NON-STOP, SMILING, PLEASANT, STATES HE FEELS COMPLETELY FINE NOW) HEENT: PERRL/EOMI, TMs normal, pharynx normal, other (MISSING TEETH/POOR DENTITION) Neck: non-tender, full range of motion, supple, normal inspection; No carotid bruit Respiratory: normal breath sounds, no respiratory distress, no accessory muscle use Cardiovascular: normal peripheral pulses, regular rate, rhythm, no edema, no JVD, no murmur Gastrointestinal: normal bowel sounds, non tender, soft Back: normal inspection Extremities: normal range of motion, non-tender, normal inspection, no pedal edema, no calf tenderness, normal capillary refill 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, no motor/sensory deficits, alert, normal mood/affect, oriented x 3; No abnormal cerebellar tests Crainal Nerves: normal hearing, normal speech, PERRL Coordination/Gait: normal finger to nose Motor/Sensory: no motor deficit, no sensory deficit, no pronator drift Skin: normal color, warm/dry Progress/Results/Core Measures Results/Orders Lab Results Laboratory Tests Test 09/23/19 22:11 09/23/19 22:19 09/23/19 22:54 Range/Units White Blood Count 7.4 4.3-11.0 10^3/uL Red Blood Count 5.41 4.35-5.85 10^6/uL Hemoglobin 16.5 13.3-17.7 G/DL Hematocrit 47 40-54 % Mean Corpuscular Volume 87 80-99 FL Mean Corpuscular Hemoglobin 31 25-34 PG Mean Corpuscular Hemoglobin Concent 35 32-36 G/DL Red Cell Distribution Width 13.8 10.0-14.5 % Platelet Count 147 130-400 10^3/uL Mean Platelet Volume 10.8 H 7.4-10.4 FL Neutrophils (%) (Auto) 51 42-75 % Lymphocytes (%) (Auto) 37 12-44 % Monocytes (%) (Auto) 7 0-12 % Eosinophils (%) (Auto) 4 0-10 % Basophils (%) (Auto) 0 0-10 % Neutrophils # (Auto) 3.7 1.8-7.8 X 10^3 Lymphocytes # (Auto) 2.7 1.0-4.0 X 10^3 Monocytes # (Auto) 0.5 0.0-1.0 X 10^3 Eosinophils # (Auto) 0.3 0.0-0.3 10^3/uL Basophils # (Auto) 0.0 0.0-0.1 10^3/uL Prothrombin Time 13.6 12.2-14.7 SEC INR Comment 1.0 0.8-1.4 Activated Partial Thromboplast Time 32 24-35 SEC D-Dimer < 0.27 0.00-0.49 UG/ML Sodium Level 140 135-145 MMOL/L Potassium Level 3.3 L 3.6-5.0 MMOL/L Chloride Level 104 98-107 MMOL/L Carbon Dioxide Level 26 21-32 MMOL/L Anion Gap 10 5-14 MMOL/L Blood Urea Nitrogen 17 7-18 MG/DL Creatinine 1.08 0.60-1.30 MG/DL Estimat Glomerular Filtration Rate > 60 BUN/Creatinine Ratio 16 Glucose Level 87 70-105 MG/DL Calcium Level 9.4 8.5-10.1 MG/DL Corrected Calcium 9.0 8.5-10.1 MG/DL Magnesium Level 2.0 1.6-2.4 MG/DL Total Bilirubin 0.4 0.1-1.0 MG/DL Aspartate Amino Transf (AST/SGOT) 49 H 5-34 U/L Alanine Aminotransferase (ALT/SGPT) 78 H 0-55 U/L Alkaline Phosphatase 92 40-136 U/L Troponin I < 0.028 <0.028 NG/ML Total Protein 7.3 6.4-8.2 GM/DL Albumin 4.5 3.2-4.5 GM/DL Serum Alcohol < 10 <10 MG/DL Glucometer 95 70-110 MG/DL Urine Color YELLOW Urine Clarity CLEAR Urine pH 6.5 5-9 Urine Specific [place] 1.020 1.016-1.022 Urine Protein NEGATIVE NEGATIVE Urine Glucose (UA) NEGATIVE NEGATIVE Urine Ketones TRACE H NEGATIVE Urine Nitrite NEGATIVE NEGATIVE Urine Bilirubin NEGATIVE NEGATIVE Urine Urobilinogen 4.0 < = 1.0 MG/DL Urine Leukocyte Esterase NEGATIVE NEGATIVE Urine RBC (Auto) NEGATIVE NEGATIVE Urine RBC NONE /HPF Urine WBC NONE /HPF Urine Crystals NONE /LPF Urine Bacteria NEGATIVE /HPF Urine Casts PRESENT /LPF Urine Granular Casts 0-2 H /LPF Urine Mucus NEGATIVE /LPF Urine Culture Indicated NO Urine Opiates Screen NEGATIVE NEGATIVE Urine Oxycodone Screen NEGATIVE NEGATIVE Urine Methadone Screen NEGATIVE NEGATIVE Urine Propoxyphene Screen NEGATIVE NEGATIVE Urine Barbiturates Screen NEGATIVE NEGATIVE Ur Tricyclic Antidepressants Screen NEGATIVE NEGATIVE Urine Phencyclidine Screen NEGATIVE NEGATIVE Urine Amphetamines Screen NEGATIVE NEGATIVE Urine Methamphetamines Screen NEGATIVE NEGATIVE Urine Benzodiazepines Screen NEGATIVE NEGATIVE Urine Cocaine Screen NEGATIVE NEGATIVE Urine Cannabinoids Screen NEGATIVE NEGATIVE My Orders Orders - RADHA AGUILAR K DO Cbc With Automated Diff (09/23/19 22:10) Protime With Inr (09/23/19 22:10) Partial Thromboplastin Time (09/23/19 22:10) Comprehensive Metabolic Panel (09/23/19 22:10) Fibrin Degradation Products (09/23/19 22:10) Troponin I (09/23/19 22:10) Ua Culture If Indicated (09/23/19 22:10) Chest 1 View, Ap/Pa Only (09/23/19 22:10) Ekg Tracing (09/23/19 22:10) Nothing By Mouth (09/24/19 Breakfast) Accucheck Stat ONCE (09/23/19 22:10) Ed Iv/Invasive Line Start (09/23/19 22:10) Ed Iv/Invasive Line Start (09/23/19 22:10) Vital Signs Stroke Patient Q15M (09/23/19 22:10) Ct Head Wo-R/O Stroke (09/23/19 22:10) O2 (09/23/19 22:10) Intake & Output 06,14,22 (09/23/19 22:10) Monitor-Rhythm Ecg Trace Only (09/23/19 22:10) Dysphagia Screening Tool (09/23/19 22:10) Lipid Panel (09/24/19 06:00) Alcohol (09/23/19 22:10) Drug Screen Stat (Urine) (09/23/19 22:10) Magnesium (09/23/19 22:10) Ct Angio Head/Neck (09/23/19 23:19) Potassium Chloride (Tablet) (Klor Con Ta (09/23/19 23:30) Iohexol Injection (Omnipaque 350 Mg/Ml 1 (09/23/19 23:45) Received Contrast (Hold Metformin- Contr (09/23/19 23:45) Ns (Ivpb) (Sodium Chloride 0.9% Ivpb Bag (09/23/19 23:45) Medications Given in ED Current Medications Medications Dose Ordered Sig/Gabi Route Start Time Stop Time Status Last Admin Dose Admin Iohexol 100 ml ONCE ONCE IV 09/23/19 23:45 09/23/19 23:47 DC 09/23/19 23:48 75 ML Potassium Chloride 20 meq ONCE ONCE PO 09/23/19 23:30 09/23/19 23:31 DC 09/23/19 23:53 20 MEQ Sodium Chloride 100 ml ONCE ONCE IV 09/23/19 23:45 09/23/19 23:47 DC 09/23/19 23:48 80 ML Vital Signs/I&O 09/23/19 09/23/19 22:08 22:21 Temp 36.3 Pulse 85 79 Resp 20 20 B/P (MAP) 150/89 (109) 157/84 Pulse Ox 95 95 O2 Delivery Room Air Progress Progress Note : Progress Note COMPLETELY ASYMPTOMATIC DURING ENTIRE ER STAY Initial ECG Impression Date: September 23, 2019 Initial ECG Impression Time: 22:07 Initial ECG Rate: 85 Initial ECG Rhythm: Normal Sinus Diagnostic Imaging Comments CXR--NO ACUTE PROCESS, PENDING RADIOLOGIST REVIEW CT HEAD--NO ACUTE PROCESS, PER [facility] VIA FAX AT [address] CT ANGIOGRAM HEAD/NECK--NO ACUTE PROCESS, NO LARGE VESSEL OCCLUSION, NO CRITICAL ARTERIAL STENOSIS. 50% STENOSIS LEFT SUPRA-CLINOID ICA. PER [facility] VIA FAX AT 0110 Reviewed: Reviewed by Me Departure Impression Primary Impression: TIA SYMPTOMS Additional Impression: Carotid artery disease Disposition: HOME, SELF-CARE Condition: Stable Departure-Patient Inst. Referrals: [facility] (PCP/Family) Primary Care Physician Patient Instructions: Transient Ischemic Attack (DC), Carotid Artery Disease (DC) Add. Discharge Instructions: CONTINUE YOUR REGULAR MEDICATIONS PRESCRIBED FOLLOW UP WITH YOUR DR IN 1-2 DAYS FOR FURTHER CARE NO DRIVING OR WORKING UNTIL CLEARED BY YOUR DR. All discharge instructions reviewed with patient and/or family. Voiced understanding. Work/School Note: Work Release Form Date Seen in the Emergency Department: September 23, 2019 Restrictions: Need Release from Doctor RADHA AGUILAR DO September 23, 2019 22:17
[2019-09-23 22:21] VITALS: BP 157/84
[2019-09-23 22:41] LABS: ALANINE AMINOTRANSFERASE 78 U/L (0-55); ALBUMIN 4.5 GM/DL (3.2-4.5); ALKALINE PHOSPHATASE 92 U/L (40-136); BILIRUBIN,TOTAL 0.4 MG/DL (0.1-1.0); BUN/CREATININE RATIO 16; CALCIUM 9.4 MG/DL (8.5-10.1); CARBON DIOXIDE 26 MMOL/L (21-32); CHLORIDE 104 MMOL/L (98-107); CREATININE SERUM 1.08 MG/DL (0.60-1.30); GFR ESTIMATED > 60; GLUCOSE 87 MG/DL (70-105); POTASSIUM 3.3 MMOL/L (3.6-5.0); SODIUM 140 MMOL/L (135-145); TOTAL PROTEIN 7.3 GM/DL (6.4-8.2)
[2019-09-23 22:56] LABS: PROTHROMBIN TIME PATIENT 13.6 SEC (12.2-14.7)
[2019-09-23 22:57] LABS: FIBRIN DEGRADATION PRODUCTS < 0.27 UG/ML (0.00-0.49); PARTIAL THROMBOPLASTIN TIME 32 SEC (24-35)
[2019-09-23 23:04] LABS: BILIRUBIN,URINE NEGATIVE (NEGATIVE); CLARITY,URINE CLEAR; COLOR,URINE YELLOW; GLUCOSE, URINE (UA) NEGATIVE (NEGATIVE); KETONES,URINE TRACE (NEGATIVE); LEUKOCYTE ESTERASE ,URINE NEGATIVE (NEGATIVE); NITRITE,URINE NEGATIVE (NEGATIVE); PH,URINE 6.5 (5-9); PROTEIN,URINE NEGATIVE (NEGATIVE)
[2019-09-23 23:19] LABS: AMPHETAMINE SCREEN, URINE NEGATIVE (NEGATIVE); BARBITURATE SCREEN URINE NEGATIVE (NEGATIVE); BENZODIAZEPINES SCREEN URINE NEGATIVE (NEGATIVE); CANNABINOID SCREEN, URINE NEGATIVE (NEGATIVE); COCAINE SCREEN URINE NEGATIVE (NEGATIVE); METHADONE STAT NEGATIVE (NEGATIVE); METHAMPHETAMINE SCREEN URINE S NEGATIVE (NEGATIVE); OPIATE SCREEN URINE NEGATIVE (NEGATIVE); OXYCODONE STAT NEGATIVE (NEGATIVE); PROPOXYPHENE STAT NEGATIVE (NEGATIVE); TRICYCLIC ANTIDEPRESSANTS SCRE NEGATIVE (NEGATIVE)
[2019-09-23 23:26] LABS: BACTERIA,URINE NEGATIVE /HPF; GRANULAR CASTS,URINE 0-2 /LPF
[2019-09-23] MEDS ORDERED: KCL 10 MEQ TAB (MICRO K) PO ONE (23:30)
[2019-09-23] MEDS ORDERED: IOHEXOL 350 MG/ML 100 ML (OMNIPAQUE 350) VIAL IV ONE (23:45)
[2019-09-23] MEDS ORDERED: HOLD METFORMIN - RECEIVED CONTRAST 20 ML VIAL IV SCH (23:45)
[2019-09-23] MEDS ORDERED: NS 100 ML (IVPB) BAG IV ONE (23:45)
--- OUTSIDE RECORDS SUMMARY | 2019-09-23 23:59 | XMS REPORT | Continuity of Care Document ---
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 10 ATHSCL HEART DISEASE OF [place] CORONARY 12/25/2018 WALTER CARTER DO Ot R51 HEADACHE 12/25/2018 WALTER CARTER DO Ot Z77. 22 CNTCT W AND EXPSR TO ENVIRON TOBACCO SMO 12/25/2018 WALTER CARTER DO Ot Z79. 02 CARE HOME (CURRENT) USE OF ANTITHROMBOTI 12/25/2018 WALTER CARTER DO Ot Z79. 82 CARE HOME (CURRENT) USE OF ASPIRIN 12/25/2018 WALTER CARTER [...] Ot I25. 10 ATHSCL HEART DISEASE OF [place] CORONARY 12/27/2018 WALTER CARTER DO Ot R51 HEADACHE 12/27/2018 WALTER CARTER DO Ot Z77. 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 82 CARE HOME (CURRENT) USE OF ASPIRIN 12/27/2018 WALTER CARTER [...] Z95. 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 Results Test Result Range CMP - 09/05/18 07:50 GLUCOSE 89 mg/dL 65-99 UREA NITROGEN (BUN) 14 mg/dL 7-25 CREATININE 0.86 mg/dL 0.60-1.35 eGFR NON-AFR. [place] 109 mL/min/1.73m2 > OR = 60 eGFR [...] Status Pt. Type Provider Facility Loc./Unit Complaint [id number] 04/27/2019 11:20:00 04/27/2019 23:59:5 9 [facility] Outpatient JOE ROTHMAN [facility] [id number] 02/11/2019 09:20:00 Document Registration [id number] 12/11/2018 13:00:00 Document Registration [id number] 09/05/2018 08:00:00 Document Registration [id number] 09/13/2019 21:58:00 22:19:00 DIS Outpatient [facility], UMESH Grossman [facility] ER FS RIGHT HAND PAIN [id number] 06/16/2019 17:45:00 20:40:00 DIS Emergency JACOBY GONZALEZ MD [facility] ER FS CHEST PAINS [id number] 12/25/2018 12:24:00 14:45:00 DIS Emergency WALTER CARTER DO [facility] ER FS HEADACHE [id number] 10/03/2018 17:45:00 09:30:00 DIS Inpatient ASHLEY DENNY DO, V [facility] 4TH CHEST PAIN
--- NOTE | 2019-09-24 00:06 | NUR ---
RT WAS NOTIFIED CHARTED ON WRONG PATIENT, UNABLE TO FIND INTERVEDNTION, BIPAP WAS NOT SET UP ON THIS PATIENT.
--- NOTE | 2019-09-24 00:48 | NUR ---
Pt resting in room, no needs at this time.
[2019-09-24 01:35] VITALS: BP 153/98
--- NOTE | 2019-09-24 07:24 | Diagnostic Imaging Report ---
INDICATION: Confusion.. TECHNIQUE: Single view chest 10:38 PM. CORRELATION STUDY: 06/16/2019 FINDINGS: Sternotomy wires are present some of which are interrupted. Heart size, mediastinum and vasculature overall generally stable. The lungs are clear with no consolidating infiltrate. There is no significant effusion or pneumothorax. IMPRESSION: 1. Previous sternotomy. Negative for acute abnormality. Dictated by: Dictated on workstation # [id number]
--- NOTE | 2019-09-24 08:05 | Diagnostic Imaging Report ---
PROCEDURE: CT head wo r/o stroke. TECHNIQUE: Multiple contiguous axial images were obtained through the brain without the use of intravenous contrast. Auto Exposure Controls were utilized during the CT exam to meet ALARA standards for radiation dose reduction. INDICATION: Confusion, altered mental status. CORRELATION: 12/25/2018 FINDINGS: There is no midline shift or mass effect. The ventricles and sulci are unremarkable. No evidence for acute intracranial hemorrhage, abnormal extra-axial fluid collections or cerebral edema is present. The basilar cisterns are unremarkable. The bony calvarium is intact. The visualized paranasal sinuses and mastoid air cells are clear. IMPRESSION: Negative appearing noncontrast CT of the head. A preliminary report was provided by [facility]. Dictated by: Dictated on workstation # [id number]
--- NOTE | 2019-09-24 08:21 | Diagnostic Imaging Report ---
PROCEDURE: CT angiography of the head and CT angiography of the neck with and without contrast. TECHNIQUE: Contiguous noncontrast images were obtained from the skull base through the vertex. After intravenous contrast administration, helical CT angiography of the neck was performed. Source data was reformatted into 3D MIP projections. Delayed post contrast acquisition was also obtained. Auto Exposure Controls were utilized during the CT exam to meet ALARA standards for radiation dose reduction. INDICATION: Confusion, altered mental status CORRELATION STUDY: None FINDINGS: Examination is slightly compromised by patient motion artifact and contrast bolus timing. CT of the neck does demonstrate multifocal areas of a calcified plaque involving the cavernous and supraclinoid segments of the left internal carotid artery. Likely at least 50% narrowing of the left supraclinoid ICA is present. Otherwise, the anterior, middle cerebral arteries are patent. There is somewhat small posterior vertebral basilar system. Posterior cerebral arteries are patent. In the neck, there appears to be a normal 3 vessel branching pattern of the aortic arch. Scattered calcified plaquing at the right as well as the left carotid bulbs extending into the internal and external carotid arteries. Findings would be suggestive of a likely less than 50% stenosis of the proximal left internal carotid artery. Otherwise, carotid arteries are patent to level of the skull base. The vertebral arteries are slightly small but appear to be patent. No significant stenosis or large occlusion. Postcontrast imaging demonstrates no abnormal areas of intracranial enhancement. Soft tissue of the neck are unremarkable. Airway patent. Visualized lung apices unremarkable. Patient is post sternotomy. A few mildly prominent but nonpathologically enlarged bilateral cervical lymph nodes. IMPRESSION: 1. CTA of the [place] demonstrates intracranial vascular calcification of the intracranial internal carotid arteries. Findings would be suggestive of at least 50% narrowing of the left supraclinoid ICA. 2. CT of the neck demonstrates atherosclerotic change particularly at the carotid bulbs. However, high degree stenosis does not appear to be suggested at this time. A preliminary report was provided by [facility]. Dictated by: Dictated on workstation # [id number]
== END 2019-09-24 01:34 | disposition home or self-care (01) ==
LOC: EDUNIT# 22:06 → EDBD 22:06 → ER 22:09
DX: R47.89 Other speech disturbances (principal); H53.9 Unspecified visual disturbance; R20.0 Anesthesia of skin; I65.22 Occlusion and stenosis of left carotid artery; I10 Essential (primary) hypertension; E78.00 Pure hypercholesterolemia, unspecified; I25.10 Atherosclerotic heart disease of native coronary artery without angina pectoris; F17.210 Nicotine dependence, cigarettes, uncomplicated; Z95.5 Presence of coronary angioplasty implant and graft; Z95.1 Presence of aortocoronary bypass graft; Z79.82 Long term (current) use of aspirin; Z88.5 Allergy status to narcotic agent; Z88.8 Allergy status to other drugs, medicaments and biological substances; Z79.02 Long term (current) use of antithrombotics/antiplatelets; Z82.49 Family history of ischemic heart disease and other diseases of the circulatory system
CPT/HCPCS: 36415; 70450; 70496; 70498; 71045; 80053; 80306; 80320; 81000; 82962; 83735; 84484; 85025; 85379; 85610; 85730; 93005; 93041

== ENCOUNTER → 2019-10-02 | Outpatient (CLI) | payer SELFPAY ==
--- NOTE | 2019-10-02 16:32 | Diagnostic Imaging Report ---
PROCEDURE: US carotid duplex, bilateral. TECHNIQUE: Multiple real-time grayscale images were obtained over the carotid arteries in various projections, bilaterally. Additional spectral analysis and color Doppler duplex images were also obtained. INDICATION: Atherosclerotic disease. FINDINGS: The bilateral peak common and internal carotid arteries revealed no suspicious elevation of the systolic velocities. The duplex waveforms are unremarkable and there is normal color Doppler laminar blood flow throughout the common and internal carotids. The ICA to CCA percent ratios bilaterally were not pathologically elevated. A moderate stenosis of the right greater than left external carotid is suspected. Intimal thickening and plaque is mixed soft and hard and relatively mild. IMPRESSION: Relatively mild degree of mixed soft and hard carotid plaque did not form hemodynamically significant common or internal carotid stenoses. Tdch-ew-[place] right greater than left external carotid stenoses noted. Absence of detectable flow in the left vertebral, however, it is confirmed patent, although small on CT angiography 09/23/2019. Parameters based on the consensus panel Nesbitt-Scale and Doppler ultrasound criteria published February 2003, Radiology, Volume 229. DOPPLER (peak systolic velocity M/S Right Left CCA 1.18 1.21 ICA Proximal .93 .87 ICA Mid .81 1.52 ICA Distal 0.82 .99 RATIO 0.79 1.26 ECA 2.20 1.65 VERT .68 NOT SEEN Dictated by: Dictated on workstation # [id number]
== END ==
LOC: RAD 12:53
PROVIDERS: ATTEND Nurse Practitioner Family
DX: I65.23 Occlusion and stenosis of bilateral carotid arteries (principal); I25.708 Atherosclerosis of coronary artery bypass graft(s), unspecified, with other forms of angina pectoris; E78.5 Hyperlipidemia, unspecified; I25.10 Atherosclerotic heart disease of native coronary artery without angina pectoris; R73.03 Prediabetes; Z95.1 Presence of aortocoronary bypass graft
CPT/HCPCS: 93880

== ENCOUNTER 2019-10-07 11:48 | Emergency (ER) | payer SELFPAY ==
[~2019-10-07] VITALS: Ht 172.7 cm; Wt 112.0 kg
--- NOTE | 2019-10-07 12:13 | ED Headache ---
General Chief Complaint: Head/Cervical Problems Stated Complaint: HEADACHE Nursing Triage Note: Patient states he developed a headache while he was at work today trying to focus on reading small numbers. Patient states after he stopped trying to read the numbers, his headache resolved. Nursing Sepsis Screen: No Definite Risk Source: patient Exam Limitations: no limitations History of Present Illness Date Seen by Provider: Oct 07, 2019 Time Seen by Provider: 12:05 Initial Comments 39-year-old male presents with a headache. Patient reports that he was at work when he was trying to focus on small numbers. Reports while focusing on small murmurs he developed a headache. Reports that after he stopped within small numbers his headache is resolved. Patient was concerned because he has a history of migraines, he was also seen on September 22 following an episode which they were concerned about either a TIA versus a seizure. Patient has not had his vision checked in about 2 years. Patient does have an appointment on November 16 with a neurologist for further evaluation. At this time symptoms have completely resolved. Allergies and Home Medications Allergies Coded Allergies: meloxicam (Verified Allergy, Unknown, 10/03/18) tramadol HCl (Verified Allergy, Unknown, 10/03/18) Home Medications Aspirin 81 Mg Tablet.dr, 81 MG PO DAILY Prescribed by: ROGER THOMPSON on 10/04/18 0931 Atorvastatin Calcium 80 Mg Tablet, 80 MG PO HS Prescribed by: SEB SUTTON on 10/03/181935 Clopidogrel Bisulfate 75 Mg Tablet, 75 MG PO DAILY Prescribed by: SEB SUTTON on 10/03/181930 Isosorbide Mononitrate 60 Mg Tab, 60 MG PO DAILY Prescribed by: SEB SUTTON on 10/03/181932 Metoprolol Tartrate 25 Mg Tablet, 25 MG PO BID Prescribed by: SEB SUTTON on 10/03/181931 Sulfamethoxazole/Trimethoprim 1 Each Tablet, 1 EACH PO BID Prescribed by: UMESH MADRID on 09/13/19 2216 Patient Home Medication List Home Medication List Reviewed: Yes Review of Systems Review of Systems Constitutional: see HPI Eyes: See HPI Ears, Nose, Mouth, Throat: no symptoms reported Respiratory: no symptoms reported Cardiovascular: no symptoms reported Gastrointestinal: no symptoms reported Genitourinary: no symptoms reported Musculoskeletal: no symptoms reported Skin: no symptoms reported Psychiatric/Neurological: Headache Past Qibwsrk-Ohqdzk-[place] Hx Past Med/Social Hx: Reviewed Nursing Past Med/Soc Hx Patient Social History Type Used: Cigarettes 2nd Hand Smoke Exposure: No Recent Foreign Travel: No Contact w/Someone Who Travel: No Recent Infectious Disease Expo: No Recent Hopitalizations: No Seasonal Allergies Seasonal Allergies: No Past Medical History Surgeries: Yes (4 VESSEL 08/12/17; STENTS X 2 10/2017) CABG, Coronary Stent Respiratory: No Cardiac: Yes (CABG JULY 2017; STENTS X 2 10/2017) Coronary Artery Disease, Hypertension Neurological: Yes Headaches /Migraines Genitourinary: No Gastrointestinal: No Musculoskeletal: No Endocrine: No HEENT: No Cancer: No Psychosocial: No Integumentary: No Blood Disorders: No Family Medical History Cardiovascular disease 19 FATHER Physical Exam Vital Signs Vital Signs - First Documented 10/07/19 12:02 Temp 36.5 Pulse 96 Resp 20 B/P (MAP) 132/82 (99) Pulse Ox 94 O2 Delivery Room Air Capillary Refill : Less Than 3 Seconds Height, Weight, BMI Height: 5'7.00" Weight: 240lbs. 0.0oz. 108.655915om; 37.00 BMI Method:Stated General Appearance: WD/WN, no apparent distress HEENT: PERRL/EOMI Neck: full range of motion, supple Cardiovascular: regular rate, rhythm, no edema Respiratory: lungs clear, normal breath sounds Gastrointestinal: normal bowel sounds, non tender Extremities: normal range of motion, non-tender Psychiatric: alert, oriented x 3 Crainal Nerves: normal hearing, normal speech, PERRL; No facial asymmetry, No facial droop Coordination/Gait: normal gait Motor/Sensory: no motor deficit, no sensory deficit, no pronator drift; No sensory deficit Reflexes: 2+ Knee (R), 2+ Knee (L) Skin: normal color, warm/dry Progress/Results/Core Measures Results/Orders Vital Signs/I&O 10/07/19 12:02 Temp 36.5 Pulse 96 Resp 20 B/P (MAP) 132/82 (99) Pulse Ox 94 O2 Delivery Room Air Blood Pressure Mean: 99 Progress Progress Note : Time: 12:11 Progress Note Discussed with patient that his symptoms most likely related to his vision however migraine could be considered. Discussed with him the need to follow-up with an eye doctor to have his vision checked, then keep his appointment with a neurologist. Patient with negative head CT in November 2018, Sep 23 2019 and a negative CTA head on Sep 23 2019. At this time a no further imaging is indicated. Patient will not be requiring any treatment since his symptoms completely resolved. Patient to be discharged in stable condition Departure Impression Primary Impression: Headache Qualified Codes: R51 - Headache Disposition: 01 HOME, SELF-CARE Condition: Stable Departure-Patient Inst. Referrals: [facility] (PCP) Primary Care Physician DEVIN IVLLARREAL APRN (Family) Primary Care Physician Patient Instructions: Headache, Adult (DC) Add. Discharge Instructions: Please follow-up with eye doctor to have your vision evaluated Keep your appointment with neurologist Follow-up with your primary care provider for continuation of care All discharge instructions reviewed with patient and/or family. Voiced understanding. Work/School Note: Work Release Form Date Seen in the Emergency Department: Oct 07, 2019 Return to Work: Oct 08, 2019 DARNELL KAUFMAN DO Oct 07, 2019 12:13
[2019-10-07 12:21] VITALS: BP 132/82
--- OUTSIDE RECORDS SUMMARY | 2019-10-07 13:05 | XMS REPORT | Continuity of Care Document ---
Author Organization Unknown Address Unknown Phone Unavailable Allergies Active Description Code Type Severity Reaction Onset Reported/Identified Relationship to Patient Clinical Status Yes meloxicam [id number] Drug Allergy Unknown N/A 10/03/2018 Yes tramadol HCl [id number] Drug Allergy Unknown N/A 10/03/2018 Medications There [...] DO Ot I25.10 ATHSCL HEART DISEASE OF [place] CORONARY 10/04/2018 ASHLEY DENNY DO Ot R07.89 OTHER CHEST PAIN 10/04/2018 ASHLEY DENNY DO Ot Z68.39 BODY MASS INDEX (BMI) 39.0-39.9, ADULT 10/04/2018 ASHLEY DENNY DO Ot Z79.02 TRADE MANAGER (CURRENT) USE OF ANTITHROMBOTI 10/04/2018 ASHLEY DENNY DO Ot Z79.84 TRADE MANAGER (CURRENT) USE OF ORAL HYPOGLYC 10/04/2018 ASHLEY DENNY DO Ot Z79.89 9 OTHER ASSISTED (CURRENT) DRUG THERAPY 10/04/2018 ASHLEY DENNY DO Ot Z95.1 PRESENCE OF AORTOCORONARY BYPASS GRAFT 10/04/2018 ASHLEY DENNY DO Ot Z95.5 PRESENCE OF CORONARY ANGIOPLASTY IMPLANT 12/25/2018 WALTER CARTER DO Ot G43.909 MIGRAINE, UNSP, NOT INTRACTABLE, WITHOUT 12/25/2018 WALTER CARTER DO Ot I25. 10 ATHSCL HEART DISEASE OF [place] CORONARY 12/25/2018 WALTER CARTER DO Ot R51 HEADACHE 12/25/2018 WALTER CARTER DO Ot Z77. 22 CNTCT W AND EXPSR TO ENVIRON TOBACCO SMO 12/25/2018 WALTER CARTER DO Ot Z79. 02 ASSISTED (CURRENT) USE OF ANTITHROMBOTI 12/25/2018 WALTER CARTER DO Ot Z79. 82 ASSISTED (CURRENT) USE OF ASPIRIN 12/25/2018 WALTER CARTER [...] Ot I25. 10 ATHSCL HEART DISEASE OF [place] CORONARY 12/27/2018 WALTER CARTER DO Ot R51 HEADACHE 12/27/2018 WALTER CARTER DO Ot Z77. 22 CNTCT W AND EXPSR TO ENVIRON TOBACCO SMO 12/27/2018 WALTER CARTER DO Ot Z79. 02 TRADE MANAGER (CURRENT) USE OF ANTITHROMBOTI 12/27/2018 WALTER CARTER DO Ot Z79. 82 ASSISTED (CURRENT) USE OF ASPIRIN 12/27/2018 WALTER CARTER [...] MD Ot I25.10 ATHSCL HEART DISEASE OF [place] CORONARY 09/16/2019 UMESH MADRID MD, Ot S60.561A INSECT BITE (NONVENOMOUS) OF RIGHT HAND, 09/16/2019 UMESH MADRID MD, Ot W57.XXXA BIT/STUNG BY NONVENOM INSECT OTH NONVE 09/16/2019 UMESH MADRID MD, Ot Z79.02 TRADE MANAGER (CURRENT) USE OF ANTITHROMBOTI 09/16/2019 UMESH MADRID MD, Ot Z79.82 TRADE MANAGER (CURRENT) USE OF ASPIRIN 09/16/2019 UMESH MADRID MD, Ot Z88.5 ALLERGY STATUS TO NARCOTIC AGENT STATUS 09/16/2019 UMESH MADRID MD, Ot Z88.8 ALLERGY STATUS TO OTH DRUG/MEDS/BIOL SUB 09/16/2019 UMESH MADRID MD, Ot Z95.1 PRESENCE OF AORTOCORONARY BYPASS GRAFT 09/16/2019 UMESH MADRID MD, Ot Z95.5 PRESENCE OF CORONARY ANGIOPLASTY IMPLANT 09/26/2019 LAUREN DO, RADHA K Ot E78.00 PURE HYPERCHOLESTEROLEMIA, UNSPECIFIED 09/26/2019 LAUREN DO, RADHA K Ot F17.210 NICOTINE DEPENDENCE, CIGARETTES, UNCOMPL 09/26/2019 LAUREN DO, RADHA K Ot H53.9 UNSPECIFIED VISUAL DISTURBANCE 09/26/2019 LAUREN DO, RADHA K Ot I10 ESSENTIAL (PRIMARY) HYPERTENSION 09/26/2019 LAUREN DO, RADHA K Ot I25.10 ATHSCL HEART DISEASE OF [place] CORONARY 09/26/2019 LAUREN DO, RADHA K Ot I65.22 OCCLUSION AND STENOSIS OF LEFT CAROTID A 09/26/2019 LAUREN DO, RADHA K Ot R20.0 ANESTHESIA OF SKIN 09/26/2019 LAUREN DO, RADHA K Ot R41.82 ALTERED MENTAL STATUS, UNSPECIFIED 09/26/2019 LAUREN DO, RADHA K Ot R47.89 OTHER SPEECH DISTURBANCES 09/26/2019 LAUREN DO, RADHA K Ot Z79.02 TRADE MANAGER (CURRENT) USE OF ANTITHROMBOTI 09/26/2019 LAUREN DO, RADHA K Ot Z79.82 ASSISTED (CURRENT) USE OF ASPIRIN 09/26/2019 LAUREN DO, RADHA K Ot Z82.49 FAMILY HX OF ISCHEM HEART DIS AND OTH DI 09/26/2019 RADHA AGUILAR DO Ot Z88.5 ALLERGY STATUS TO NARCOTIC AGENT STATUS 09/26/2019 LAURENRADHA Neville DO Ot Z88.8 ALLERGY STATUS TO OTH DRUG/MEDS/BIOL SUB 09/26/2019 RADHA AGUILAR DO K Ot Z95.1 PRESENCE OF AORTOCORONARY BYPASS GRAFT 09/26/2019 LAUREN RADHA LARIOS Ot Z95.5 PRESENCE OF CORONARY ANGIOPLASTY IMPLANT 10/07/2019 O'DELL, OTTONIEL K SPECIAL LIBRARIAN Ot E78 .5 HYPERLIPIDEMIA, UNSPECIFIED 10/07/2019 O'DELL, OTTONIEL K SPECIAL LIBRARIAN Ot I25.10 ATHSCL HEART DISEASE OF [place] CORONARY 10/07/2019 O'DELL OTTONIEL K SPECIAL LIBRARIAN Ot I25.708 ATHEROSCLEROSIS OF CABG, UNSP, W OTH ANG 10/07/2019 O'DELL OTTONIEL K SPECIAL LIBRARIAN Ot I65.23 OCCLUSION AND STENOSIS OF BILATERAL [place] 10/07/2019 O'DELL, OTTONIEL K SPECIAL LIBRARIAN Ot R73.03 PREDIABETES 10/07/2019 O'DELL, OTTONIEL K SPECIAL LIBRARIAN Ot Z95 .1 PRESENCE OF AORTOCORONARY BYPASS GRAFT Procedures There is no data. Results Test Result Range CMP - 09/05/18 07:50 GLUCOSE 89 mg/dL 65-99 UREA NITROGEN (BUN) 14 mg/dL 7-25 CREATININE 0.86 mg/dL 0.60-1.35 eGFR NON-AFR. [place] 109 mL/min/1.73m2 > OR = 60 eGFR [...] 19:50 TROPONIN I FS < 0.30 <0.30 Complete blood count (CBC) with automate d white blood cell (WBC) differential - 09/23/19 22:11 Blood leukocytes automated count (number/volume) 7.4 10*3/uL 4.3-11.0 Blood erythrocytes automated count (number/volume) 5.41 10*6/uL 4.35-5.85 Venous blood hemoglobin measurement (mass/volume) 16.5 g/dL 13.3-17.7 Blood hematocrit (volume fraction) 47 % 40-54 Automated erythrocyte mean corpuscular volume 87 [ foz_us] 80-99 Automated erythrocyte mean corpuscular h emoglobin (mass per erythrocyte) 31 pg 25-34 Automated erythrocyte mean corpuscular h emoglobin concentration measurement (mass/volume) 35 g/dL 32-36 Automated erythrocyte distribution width ratio 13. 8 % 10.0- 14.5 Automated blood platelet count (count/volume) 147 10*3/uL 130-400 Automated blood platelet mean volume measurement 10.8 [foz_us] 7.4-10.4 Automated blood neutrophils/100 leukocytes 51 % 42-75 Automated blood lymphocytes/100 leukocytes 37 % 12-44 Blood monocytes/100 leukocytes 7 % 0-12 Automated blood eosinophils/100 leukocytes 4 % 0-10 Automated blood basophils/100 leukocytes 0 % 0-10 Blood neutrophils automated count (number/volume) 3.7 10*3 1.8-7.8 Blood lymphocytes automated count (number/volume) 2.7 10*3 1.0-4.0 Blood monocytes automated count (number/volume) 0. 5 10*3 0.0-1.0 Automated eosinophil count 0.3 10*3/uL 0 .0-0.3 Automated blood basophil count (count/volume) 0.0 10*3/uL 0.0-0.1 Comprehensive metabolic panel - 09/23/19 22:11 Serum or plasma sodium measurement (moles/volume) 140 mmol/L 135-145 Serum or plasma potassium measurement (moles/volume) 3.3 mmol/L 3.6-5.0 Serum or plasma chloride measurement (moles/volume) 104 mmol/L 98-107 Carbon dioxide 26 mmol/L 21-32 Serum or plasma anion gap determination (moles/volume) 10 mmol/L 5-14 Serum or plasma urea nitrogen measurement (mass/volume ) 17 mg/dL 7-18 Serum or plasma creatinine measurement (mass/volume) 1.08 mg/dL 0.60-1.30 Serum or plasma urea nitrogen/creatinine mass ratio 16 NRG Serum or plasma creatinine measurement w ith calculation of estimated glomerular filtration rate > NRG Serum or plasma glucose measurement (mass/volume) 87 mg/dL 70-105 Serum or plasma calcium measurement (mass/volume) 9.4 mg/dL 8.5-10.1 Serum or plasma total bilirubin measurement (mass/volu me) 0.4 mg/dL 0.1-1.0 Serum or plasma alkaline phosphatase allan surement (enzymatic activity/volume) 92 U/L 40-136 Serum or plasma aspartate aminotransfera se measurement (enzymatic activity/volume) 49 U/L 5-34 Serum or plasma alanine aminotransferase measurement (enzymatic activity/volume) 78 U/L 0-55 Serum or plasma protein measurement (mass/volume) 7.3 g/dL 6.4-8.2 Serum or plasma albumin measurement (mass/volume) 4.5 g/dL 3.2-4.5 CALCIUM CORRECTED 9.0 mg/dL 8.5-10.1 Magnesium - 09/23/19 22:11 Magnesium 2.0 mg/dL 1.6-2.4 Serum or plasma troponin i.cardiac measu rement (mass/volume) - 09/23/19 22:11 Serum or plasma troponin i.cardiac measurement (mass/v olume) < ng/mL <0.028 Serum or plasma ethanol measurement (mas s/volume) - 09/23/19 22:11 Serum or plasma ethanol measurement (mass/volume) < mg/dL <10 PT panel in platelet poor plasma by coag ulation assay - 09/23/19 22:11 Prothrombin time (PT) in platelet poor plasma by coagu lation assay 13.6 s 12.2-14.7 INR in platelet poor plasma or blood by coagulation as say 1.0 0.8-1.4 Activated partial thromboplastin time (a PTT) in platelet poor plasma bycoagulation assay - 09/23/19 22:11 Activated partial thromboplastin time (a PTT) in platelet poor plasma bycoagulation assay 32 s 24-35 Fibrin D-dimer FEU measurement in platel et poor plasma (mass/volume) - 09/23/19 22:11 Fibrin D-dimer FEU measurement in platelet poor plasma (mass/volume) < ug/mL 0.00-0.49 Capillary blood glucose measurement by g lucometer (mass/volume) - 09/23/19 22:19 Capillary blood glucose measurement by glucometer (mas s/volume) 95 mg/dL 70-110 Urine drug screening test - 09/23/19 22: 54 Urine phencyclidine detection by screening method NEGATIVE NEGATIVE Urine benzodiazepines detection by screening method NEGATIVE NEGATIVE Urine cocaine detection NEGATIVE NEGATI VE Urine amphetamines detection by screening method N EGATIVE NEGATIVE Urine methamphetamine detection by screening method NEGATIVE NEGATIVE Urine cannabinoids detection by screening method N EGATIVE NEGATIVE Urine opiates detection by screening method NEGATI VE NEGATIVE Urine barbiturates detection NEGATIVE N EGATIVE Screening urine tricyclic antidepressants detection NEGATIVE NEGATIVE Urine methadone detection by screening method NEGA TIVE NEGATIVE Urine oxycodone detection NEGATIVE NEGA TIVE Urine propoxyphene detection NEGATIVE N EGATIVE Complete urinalysis with reflex to cultu re - 09/23/19 22:54 Urine color determination YELLOW NRG Urine clarity determination CLEAR NR G Urine pH measurement by test strip 6.5 5-9 Specific gravity of urine by test strip 1.020 1.016-1.022 Urine protein assay by test strip, semi-quantitative NEGATIVE NEGATIVE Urine glucose detection by automated test strip NE GATIVE NEGATIVE Erythrocytes detection in urine sediment by light micr oscopy NEGATIVE NEGATIVE Urine ketones detection by automated test strip TR JASPER NEGATIVE Urine nitrite detection by test strip NEGATIVE NEGATIVE Urine total bilirubin detection by test strip NEGA TIVE NEGATIVE Urine urobilinogen measurement by automated test strip (mass/volume) 4.0 mg/dL < = 1.0 Urine leukocyte esterase detection by dipstick NEG ATIVE NEGATIVE Automated urine sediment erythrocyte cou nt by microscopy (number/high power field) NONE NRG Automated urine sediment leukocyte count by microscopy (number/high power field) NONE NRG Bacteria detection in urine sediment by light microsco py NEGATIVE NRG Crystals detection in urine sediment by light microsco py NONE NRG Casts detection in urine sediment by light microscopy PRESENT NRG Mucus detection in urine sediment by light microscopy NEGATIVE NRG Complete urinalysis with reflex to culture NO NRG Granular casts detection in urine sediment by light mi croscopy 0-2 NRG Encounters ACCT No. Visit Date/Time Discharge Status Pt. Type Provider Facility Loc./Unit Complaint [id number] 04/27/2019 11:20:00 04/27/2019 23:59:5 9 CLS Outpatient JOE ROTHMAN [facility] [id number] 02/11/2019 09:20:00 Document Registration [id number] 12/11/2018 13:00:00 Document Registration [id number] 09/05/2018 08:00:00 Document Registration [id number] 10/07/2019 11:50:00 12:15:00 DIS Emergency DARNELL KAUFMAN DO [facility] ER FS HEADACHE [id number] 10/02/2019 12:53:00 23:59:59 CLS Outpatient OTTONIEL THAKUR APRN [facility] RAD STROKE LIKE SYMPTOMS [id number] 09/23/2019 22:09:00 01:34:00 DIS Outpatient RADHA AGUILAR DO, [facility] ER ALTERED MENTAL STATUS [id number] 09/13/2019 21:58:00 22:19:00 DIS Outpatient UMESH MADRID MD [facility] ER FS RIGHT HAND PAIN [id number] 06/16/2019 17:45:00 20:40:00 DIS Emergency JACOBY GONZALEZ MD [facility] ER FS CHEST PAINS [id number] 12/25/2018 12:24:00 14:45:00 DIS Emergency WALTER CARTER DO [facility] ER FS HEADACHE [id number] 10/03/2018 17:45:00 019 09:30:00 DIS Inpatient ASHLEY DENNY DO [facility] 4TH CHEST PAIN
== END 2019-10-07 12:15 | disposition home or self-care (01) ==
LOC: EDUNIT# 11:48 → ER FS 11:50
DX: R51 Headache (principal); I10 Essential (primary) hypertension; I25.10 Atherosclerotic heart disease of native coronary artery without angina pectoris; Z86.69 Personal history of other diseases of the nervous system and sense organs; Z88.5 Allergy status to narcotic agent; Z88.8 Allergy status to other drugs, medicaments and biological substances; Z79.82 Long term (current) use of aspirin; Z79.02 Long term (current) use of antithrombotics/antiplatelets; Z95.5 Presence of coronary angioplasty implant and graft; Z95.1 Presence of aortocoronary bypass graft; Z82.49 Family history of ischemic heart disease and other diseases of the circulatory system
CPT/HCPCS: 99282

== ENCOUNTER 2020-12-28 18:07 | Emergency (ER) | payer MEDICAID ==
[~2020-12-28] VITALS: Ht 170.2 cm; Wt 117.0 kg
[~2020-12-28 18:07] MED LIST changes: +ASPI-1238 PO; -ASPI-983 PO; -ISM60TCR PO; +ISOS60TA63 PO; -SULF1TAB35 PO; +SULF1TAB38 PO
[2020-12-28 18:12] VITALS: BP 194/104
--- NOTE | 2020-12-28 18:19 | ED EENT ---
History of Present Illness General Chief Complaint: Eye Problems Stated Complaint: LT EYE BURN Source: patient History of Present Illness Date Seen by Provider: Dec 28, 2020 Time Seen by Provider: 18:19 Initial Comments In the kitchen at home and hot grease splashed (a drop) in his left eye. He rinsed it well, but having burning and blurred vision since then Allergies and Home Medications Allergies Coded Allergies: meloxicam (Verified Allergy, Unknown, 10/03/18) tramadol HCl (Verified Allergy, Unknown, 10/03/18) Home Medications Aspirin 81 Mg Tablet.dr, 81 MG PO DAILY Prescribed by: ROGER THOMPSON on 10/04/18 0931 Atorvastatin Calcium 80 Mg Tablet, 80 MG PO HS Prescribed by: SEB SUTTON on 10/03/181935 Clopidogrel Bisulfate 75 Mg Tablet, 75 MG PO DAILY Prescribed by: SEB SUTTON on 10/03/181930 Erythromycin Base 1 Gm Oint...g., 0 OP Q4H 1/2 inch Prescribed by: ROSEANNE CLARK on 12/28/20 183 Isosorbide Mononitrate 60 Mg Tab, 60 MG PO DAILY Prescribed by: SEB SUTTON on 10/03/181932 Metoprolol Tartrate 25 Mg Tablet, 25 MG PO BID Prescribed by: SEB SUTTON on 10/03/181931 Sulfamethoxazole/Trimethoprim 1 Each Tablet, 1 EACH PO BID Prescribed by: UMESH MADRID on 09/13/19 2215 Patient Home Medication List Home Medication List Reviewed: Yes Review of Systems Review of Systems Constitutional: No fever, No malaise Eyes: See HPI, Blurred Vision; Denies Foreign Body Sensation; Pain; Denies Contact Lenses Ears: No Symptoms Reported Nose: no symptoms reported Mouth: no symptoms reported Neurological: No Symptoms Reported Past Gsqqjac-Yhrqie-Hsbrpt Hx Patient Social History Tobacco Use?: No Seasonal Allergies Seasonal Allergies: No Past Medical History Surgeries: Yes (4 VESSEL 08/12/17; STENTS X 2 10/2017) CABG, Coronary Stent Respiratory: No Cardiac: Yes (CABG JULY 2017; STENTS X 2 10/2017) Coronary Artery Disease, Hypertension Neurological: Yes Headaches /Migraines Genitourinary: No Gastrointestinal: No Musculoskeletal: No Endocrine: No HEENT: No Cancer: No Psychosocial: No Integumentary: No Blood Disorders: No Family Medical History Cardiovascular disease 19 FATHER Physical Exam Vital Signs Vital Signs - First Documented 12/28/20 18:12 Temp 37.8 Pulse 78 Resp 18 B/P (MAP) 194/104 (134) Pulse Ox 98 O2 Delivery Room Air Height, Weight, BMI Height: 5'7.00" Weight: 240lbs. 0.0oz. 108.581146vx; 37.00 BMI Method:Stated General Appearance: WD/WN, no apparent distress Eyes: left eye corneal abrasion; bilateral eye normal inspection, bilateral eye PERRL, bilateral eye EOMI Neurologic/Psychiatric: alert, normal mood/affect, oriented x 3 Skin: normal color, warm/dry Procedures/Interventions Eye : Location: left eye Anesthesia (gtts): Tetracaine Progress/Procedure Conclusion minimal flourescein uptake left lower cornea. NO FB seen Progress/Results/Core Measures Results/Orders My Orders Orders - ROSEANNE CLARK DO Tetracaine 0.5% Ophth Arleth Sdv (Tetracai (12/28/20 18:30) Fluorescein Strips ([id number]-W-Gnmflj) (12/28/20 18:30) Balanced Salt Irrigation Soln (Bss Irrig (12/28/20 18:30) Erythromycin Ophth Oint (Erythromycin Op (12/28/20 18:34) Erythromycin Ophth Oint (Erythromycin Op (12/28/20 18:42) Medications Given in ED Current Medications Medications Dose Ordered Sig/Gabi Route Start Time Stop Time Status Last Admin Dose Admin Balanced Salt Solution 15 ml ONCE ONCE IR 12/28/20 18:30 12/28/20 18:31 DC 12/28/20 18:31 15 ML Fluorescein Sodium 1 mg ONCE ONCE OU 12/28/20 18:30 12/28/20 18:31 DC 12/28/20 18:31 1 MG Tetracaine HCl 4 ml ONCE ONCE OU 12/28/20 18:30 12/28/20 18:31 DC 12/28/20 18:31 4 ML Vital Signs/I&O 12/28/20 18:12 Temp 37.8 Pulse 78 Resp 18 B/P (MAP) 194/104 (134) Pulse Ox 98 O2 Delivery Room Air Departure Impression Primary Impression: Corneal abrasion Qualified Codes: S05.02XA - Injury of conjunctiva and corneal abrasion without foreign body, left eye, initial encounter Disposition: 01 HOME, SELF-CARE Condition: Improved Departure-Patient Inst. Decision time for Depature: 18:34 Referrals: DEVIN VILLARREAL APRN (PCP) Primary Care Physician [facility] (Family) Primary Care Physician Patient Instructions: Corneal Abrasion (DC) Add. Discharge Instructions: see your EYE doctor in town in 1 to 2 days for re-examination. Use the antibiotic ointment three times daily for 2 days, do not use on the day you see the eye doctor. All discharge instructions reviewed with patient and/or family. Voiced understanding. Scripts Erythromycin Base (Erythromycin Opthalmic Ointment) 1 Gm Oint...g. 0 OP Q4H for 3 Days, #1 EA 04/30 inch Prov: ROSEANNE CLARK DO 12/28/20 ROSEANNE CLARK DO Dec 28, 2020 18:19
[2020-12-28] MEDS ORDERED: FLUORESCEIN (FLUOR-I-STRIPS) 1 MG STRP OU ONE (18:30)
[2020-12-28] MEDS ORDERED: BSS 15 ML IR ONE (18:30)
[2020-12-28] MEDS ORDERED: TETRACAINE 0.5% OPHTH SOLN 4 ML BTL (SINGLE DOSE ONLY) OU ONE (18:30)
[2020-12-28] MEDS ORDERED: ERYTHROMYCIN OPHTH OINT 1 GM (SINGLE USE) TUBE OP STA (18:34)
[2020-12-28] MEDS ORDERED: ERYT1OIN6 OP (18:36)
[2020-12-28] MEDS ORDERED: ERYTHROMYCIN OPHTH OINT 1 GM (SINGLE USE) TUBE ONE (18:42)
== END 2020-12-28 18:51 | disposition home or self-care (01) ==
LOC: EDUNIT# 18:07 → ER FS 18:09
DX: S05.02XA Injury of conjunctiva and corneal abrasion without foreign body, left eye, initial encounter (principal); I10 Essential (primary) hypertension; I25.10 Atherosclerotic heart disease of native coronary artery without angina pectoris; Z79.899 Other long term (current) drug therapy; Z79.01 Long term (current) use of anticoagulants; Z79.82 Long term (current) use of aspirin; X10.2XXA Contact with fats and cooking oils, initial encounter; Y92.009 Unspecified place in unspecified non-institutional (private) residence as the place of occurrence of the external cause
CPT/HCPCS: 99281

== ENCOUNTER → 2021-12-12 | Outpatient (CLI) | payer MEDICARE, OTHER ==
[~2021-12-12] MED LIST changes: +ERYT1OIN6 OP
--- NOTE | 2021-12-12 15:38 | Diagnostic Imaging Report ---
PROCEDURE: MRI lumbar spine. TECHNIQUE: Multiplanar, multisequence MRI of the lumbar spine was performed without contrast. INDICATION: Increasing low back pain. COMPARISON: No prior studies are available for comparison. The curvature of the lumbar spine is normal. There appears to be minimal anterolisthesis of L5 on S1. Vertebral body heights are maintained. No acute compression fracture is seen. No geographic marrow lesion is seen. There are some reactive changes anteriorly and inferiorly involving the T12 vertebral body. Disc spaces appear to be fairly well-maintained. There is fairly normal height and hydration present. The conus is unremarkable at the T12-L1 level. T12-L1: Central canal and neural foramina are widely patent. L1-L2: Central canal and neural foramina appear patent. L2-L3: There does appear to be some mild annular bulging with some narrowing of the lateral recesses bilaterally. Central canal is patent. Neural foramina appear patent. L3-L4: Broad-based annular bulging is noted resulting in moderate bilateral lateral recess narrowing. There is moderate bilateral neural foraminal narrowing. Central canal is patent. L4-L5: Central canal is patent. Broad-based disc bulging does result in bilateral lateral recess stenosis. There is also moderate bilateral neural foraminal stenosis. L5-S1: Broad-based disc bulging is noted. This results in bilateral lateral recess narrowing. There is also bilateral neural foraminal narrowing, moderate. No significant central canal stenosis is seen. There is some signal within the right posterior lateral aspect of the annulus consistent with an annular tear or degeneration. IMPRESSION: Multilevel lumbar spondylosis with lateral recess and neural foraminal narrowing described level below level above. No large disc protrusion is seen. There is no central canal stenosis. Dictated by: Dictated on workstation # [id number]
== END ==
LOC: RAD 12:30
PROVIDERS: ATTEND Nurse Practitioner Family
DX: M51.27 Other intervertebral disc displacement, lumbosacral region (principal); M48.07 Spinal stenosis, lumbosacral region; M47.816 Spondylosis without myelopathy or radiculopathy, lumbar region
CPT/HCPCS: 72148